=== PATIENT | female | born 1965 | race Caucasian/White ===

== ENCOUNTER → 2020-06-13 09:31 | Outpatient (CLI) | payer OTHER, SELFPAY ==
[2020-06-13 10:46] LABS: EXAGEN MAILED SPECIMEN
[2020-06-13 12:38] LABS: Prothrombin Time (Protime)PT. 13.2 SECONDS (11.7-14.9)
[2020-06-13 12:39] LABS: Partial Thromboplast Time 38.6 Seconds (24.1-36.2)
[2020-06-13 12:43] LABS: ALB/GLOB Ratio 0.9 RATIO (0.9-2.4); AST(SGOT) 18 U/L (15-37); Alanine Aminotransfer ALT/SGPT 22 U/L (13-56); Albumin, Serum 3.5 g/dL (3.2-5.0); Alkaline Phosphatase 89 U/L (45-117); Anion Gap 6 (5-15); BUN 14 mg/dL (7-18); BUN/Creat Ratio 13.3 RATIO (10-20); Calcium,Total 8.8 mg/dL (8.5-10.1); Chloride 98 mmol/L (98-107); Creatinine, Serum 1.05 mg/dL (0.55-1.02); EST Glomerular Filtration Rate 57 mL/min (>60); Est Glom Filt Rate - Afr Amer 70 mL/min (>60); Globulin 3.7 g/dL (2.2-4.2); Glucose 99 mg/dL (74-106); Potassium 3.7 mmol/L (3.5-5.1); Protein, Total 7.2 g/dL (6.4-8.2); Sodium Level 135 mmol/L (136-145)
[2020-06-13 12:59] LABS: Erythrocyte Sedimentation Rate 14 mm/hr (0-30)
[2020-06-13 13:10] LABS: Absolute Lymphocyte Count 2.04 X10^3/uL (0.83-4.51); Absolute Neutrophil Count 8.1 X10^3/uL (2.0-7.7); Basophil# 0.01 X10^3/uL; Basophil% 0.1 % (0-1); Eosinophil# 0.09 X10^3/uL; Eosinophils% 0.8 % (0-5); Hematocrit 38.6 % (37-47); Hemoglobin 12.5 g/dL (12.0-15.0); Lymphocyte # 2.04 X10^3/ul (4.0); Lymphocyte % 18.1 % (19-41); Mean Corp Hgb Conc 32.4 g/dL (32-36); Mean Corpuscular Volume 92.8 fL (81-99); Mean Platelet Vol. 11.5 fl (6.2-12.0); Monocyte# 0.97 X10^3/uL; Monocyte% 8.6 % (0-10); NRBC Flagged by Analyzer 0 % (0-5); Neutrophil # 8.09 X10^3/uL (2.7-7.7); Platelet Count 290 K/mm3 (150-450); Protein, Urine (Random) 14.8 mg/dL (<11.9); Protein:Creat Ratio 159 mg/g CRE (0-200); RBC Distribution Width CV 13.6 % (11.6-14.6); RBC Distribution Width SD 46.2 fl (35.1-43.9); Red Blood Count 4.16 M/mm3 (4.2-5.4); White Blood Count 11.3 K/mm3 (4.4-11.0)
[2020-06-13 13:12] LABS: Hepatitis B Surface Antibody Non-Reactive; Hepatitis B Surface Antigen Non-Reactive (Nonreactive); Hepatitis C Antibody Non-Reactive (Nonreactive)
[2020-06-13 13:13] LABS: Color, Urine Yellow (Yellow); Glucose, Dipstick Normal (Normal); Ketone-Dipstick Negative (Negative); Leukocyte Esterase-Dipstick Negative /ul (Negative); Nitrite-Dipstick Negative (Negative); Occult Blood-Urine Negative /ul (Negative); Protein-Dipstick Negative (Negative); Urine Bilirubin Dipstick Negative (Negative); Urine Clarity Clear (Clear); Urine Urobilinogen Normal (Normal)
[2020-06-14 14:32] LABS: Thrombin Time 14.6 sec (0.0-23.0)
[2020-06-16 09:07] LABS: Dilute Prothrombin Time (dPT) 41.6 sec (0.0-55.0); Dilute Russell Viper Venom 46.4 sec (0.0-47.0); Hexagonal Phase Phospholipid 0 sec (0-11); Hexagonal Phase Phospholipid 2 0 sec (0-11); PTT-LA 54.5 sec (0.0-51.9); PTT-LA Incub Mix 60.1 sec (0.0-48.9); PTT-LA Mix 48.7 sec (0.0-48.9); Thrombin Time 15.3 sec (0.0-23.0); dPT Confirm Ratio 1.17 Ratio (0.00-1.40)
[2020-06-20 14:00] LABS: Interpretation Comment: (.)
== END ==
PROVIDERS: PCP Family Medicine; Referring Provider Internal Medicine Rheumatology; Visit Provider Internal Medicine Rheumatology
DX: M06.4 Inflammatory polyarthropathy (principal); R76.8 Other specified abnormal immunological findings in serum; M19.041 Primary osteoarthritis, right hand; M18.0 Bilateral primary osteoarthritis of first carpometacarpal joints; M17.0 Bilateral primary osteoarthritis of knee; M47.892 Other spondylosis, cervical region; M47.897 Other spondylosis, lumbosacral region; I10 Essential (primary) hypertension; E03.9 Hypothyroidism, unspecified; E78.5 Hyperlipidemia, unspecified; K58.9 Irritable bowel syndrome, unspecified
CPT/HCPCS: 36415; 80053; 81002; 82570; 84156; 85025; 85598; 85610; 85652; 85670; 85730; 86140; 86706; 86803; 87340

== ENCOUNTER → 2020-07-09 14:52 | Outpatient (CLI) | payer OTHER, SELFPAY ==
--- NOTE | 2020-07-09 14:55 | BI_ITS ---
MAMMOGRAPHY - BILATERAL SCREENING REASON FOR EXAM: Female, 55 years old. Routine annual screening examination. PERTINENT HISTORY: Aunt with breast cancer. TECHNIQUE: Digital bilateral breast odell (3D mammographic acquisition) in the CC and MLO projections. 2-D mediolateral oblique (MLO) and craniocaudad (CC) views of both breasts were obtained. CAD: Full Field Digital Mammography with Computer Added Detection was performed. COMPARISON: Comparison is made with prior outside examination dated 12/13/2018. FINDINGS: Breast Composition: The breasts are heterogeneously dense, which may obscure small masses. There are no dominant masses or suspicious calcifications. Stable small benign-appearing bilateral axillary lymph nodes. No other significant abnormalities are identified. There has been no significant change since the prior study. BI/SCRN MAMM (CAD)W/ODELL BILAT IMPRESSION: Stable bilateral screening mammogram. Yearly follow-up mammogram recommended. (A) ASSESSMENT CATEGORY: BIRADS Category 2: Benign. A letter regarding these results will be sent to the patient by the facility within 30 days. Approximately 10% of breast cancers are not detected by mammography. A normal mammogram should not delay biopsy of a clinically suspicious abnormality. [id number] Electronically Signed: Nehemiah Romero MD at 15:37 EST , Service support ,
== END ==
PROVIDERS: PCP Family Medicine; Referring Provider Family Medicine; Visit Provider Family Medicine
DX: Z12.31 Encounter for screening mammogram for malignant neoplasm of breast (principal); Z80.3 Family history of malignant neoplasm of breast
CPT/HCPCS: 77063; 77067

== ENCOUNTER → 2020-09-06 11:01 | Outpatient (CLI) | payer MEDICARE, SELFPAY ==
[2020-09-06 11:37] LABS: Absolute Lymphocyte Count 2.39 X10^3/uL (0.83-4.51); Absolute Neutrophil Count 3.7 X10^3/uL (2.0-7.7); Basophil# 0.03 X10^3/uL; Basophil% 0.4 % (0-1); Eosinophil# 0.27 X10^3/uL; Eosinophils% 3.8 % (0-5); Hematocrit 38.1 % (37-47); Hemoglobin 12.2 g/dL (12.0-15.0); Lymphocyte # 2.39 X10^3/ul (4.0); Lymphocyte % 33.5 % (19-41); Mean Corpuscular Hgb 30.1 pg (27.0-32.0); Mean Corpuscular Volume 94.1 fL (81-99); Mean Platelet Vol. 10.7 fl (6.2-12.0); Monocyte# 0.76 X10^3/uL; Monocyte% 10.7 % (0-10); NRBC Flagged by Analyzer 0 % (0-5); Neutrophil # 3.65 X10^3/uL (2.7-7.7); Neutrophil % 51.2 % (47-70); Platelet Count 307 K/mm3 (150-450); RBC Distribution Width CV 14.7 % (11.6-14.6); RBC Distribution Width SD 50.4 fl (35.1-43.9); Red Blood Count 4.05 M/mm3 (4.2-5.4); White Blood Count 7.1 K/mm3 (4.4-11.0)
[2020-09-06 12:16] LABS: AST(SGOT) 19 U/L (15-37); Alanine Aminotransfer ALT/SGPT 27 U/L (13-56); Albumin, Serum 3.3 g/dL (3.2-5.0); Alkaline Phosphatase 89 U/L (45-117); Anion Gap 5 (5-15); BUN 17 mg/dL (7-18); BUN/Creat Ratio 17.9 RATIO (10-20); Chloride 102 mmol/L (98-107); Creatinine, Serum 0.95 mg/dL (0.55-1.02); EST Glomerular Filtration Rate 64 mL/min (>60); Est Glom Filt Rate - Afr Amer 78 mL/min (>60); Globulin 3.4 g/dL (2.2-4.2); Glucose 96 mg/dL (74-106); Potassium 4.6 mmol/L (3.5-5.1); Protein, Total 6.7 g/dL (6.4-8.2); Sodium Level 137 mmol/L (136-145)
== END ==
PROVIDERS: PCP Family Medicine; Referring Provider Internal Medicine Rheumatology; Visit Provider Internal Medicine Rheumatology
DX: M06.4 Inflammatory polyarthropathy (principal); Z79.899 Other long term (current) drug therapy; R76.8 Other specified abnormal immunological findings in serum; M19.041 Primary osteoarthritis, right hand; M18.0 Bilateral primary osteoarthritis of first carpometacarpal joints; M17.0 Bilateral primary osteoarthritis of knee; M47.892 Other spondylosis, cervical region; M47.897 Other spondylosis, lumbosacral region; I10 Essential (primary) hypertension; E03.9 Hypothyroidism, unspecified; E78.5 Hyperlipidemia, unspecified; K58.9 Irritable bowel syndrome, unspecified
CPT/HCPCS: 36415; 80053; 85025

== ENCOUNTER → 2020-10-05 07:03 | Outpatient (CLI) | payer MEDICARE, SELFPAY ==
--- NOTE | 2020-10-05 07:18 | MRI_ITS ---
STUDY: MRI CERVICAL SPINE WITHOUT CONTRAST REASON FOR EXAM: Female, 55 years old. SPINAL STENOSIS TECHNIQUE: Standardized fat and water weighted pulse sequences were obtained in the sagittal and axial planes. COMPARISON: None FINDINGS: Normal foramen magnum and brainstem-cervical cord junction. Normal craniovertebral junction. Normal anterior atlantoaxial articulation. Normal odontoid process. Normal cervical lordosis. Normal vertebral bodies and posterior osseous elements. C2-3: Normal endplates. Normal disc height, signal and morphology. Normal central canal and intervertebral neural foramina. C3-4: Normal endplates. Normal disc height, signal and morphology. Normal central canal and intervertebral neural foramina. C4-5: Normal endplates. Normal disc height, signal and morphology. Normal central canal and intervertebral neural foramina. C5-6: Moderate broad disc osteophyte complex produces moderate spinal stenosis with abutment the central spinal cord and mild bilateral neural foraminal stenosis. C6-7: Moderate broad disc osteophyte complex produces moderate spinal stenosis with abutment the central spinal cord and mild bilateral neural foraminal stenosis. C7-T1: Normal endplates. Normal disc height, signal and morphology. Normal central canal and intervertebral neural foramina. Normal cervical cord. The dilatation of nerve root sleeves bilaterally at multiple levels in the lower cervical spine. Normal visualized soft tissue structures. MRI/Spine Cervical (Routine) IMPRESSION: Multilevel degenerative changes, as described above. Electronically Signed: Gabo Oates MD at 10:16 EDT Tel , Service support ,
--- NOTE | 2020-10-05 07:19 | MRI_ITS ---
STUDY: MRI LUMBAR SPINE WITHOUT CONTRAST REASON FOR EXAM: Female, 55 years old. DEGENERATION OF LUMBAR DISC TECHNIQUE: Standardized fat and water weighted pulse sequences were obtained in the sagittal and axial planes. COMPARISON: None FINDINGS: T12-L1: Normal endplates. Normal disc height, hydration and morphology. Normal bilateral facet joints. Normal central canal and bilateral lateral recesses. Normal bilateral intervertebral neural foramina. Normal lumbar lordosis. There is no substantial scoliosis. Normal conus medullaris that terminates at the T12/L1. L1-2: Mild broad disc protrusion produces mild spinal stenosis and mild bilateral neural foraminal stenosis. L2-3: Moderate broad disc protrusion produces moderate spinal stenosis with mild bilateral lateral recess stenosis and moderate bilateral neural foraminal stenosis with abutment of the exiting L2 nerve roots bilaterally. L3-4: Mild bilateral facet hypertrophy with fluid in the facet joints consistent with instability and moderate ligament flavum hypertrophy. Moderate broad disc protrusion asymmetric to left with a left foraminal protrusion produces moderate spinal stenosis with mild bilateral lateral recess stenosis, mild right neural foraminal stenosis and moderate left neural foraminal stenosis with abutment of the left L3 nerve root laterally. L4-5: Mild bilateral facet hypertrophy with fluid in the facet joints consistent with instability and moderate ligament flavum hypertrophy. Moderate broad disc protrusion and right foraminal protrusion produces moderate spinal stenosis, severe right neural foraminal stenosis and the moderate left neural foraminal stenosis. L5-S1: Mild bilateral facet hypertrophy and ligament flavum hypertrophy. Mild broad disc protrusion produces mild central stenosis and moderate bilateral neural foraminal stenosis. Normal visualized sacral ala. Severe friction related edema of the posterior subcutaneous fat. MRI/Spine Lumbar (Routine) IMPRESSION: Multilevel degenerative changes, as described above. Electronically Signed: Gabo Oates MD at 11:46 EDT Tel , Service support ,
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
== END ==
PROVIDERS: PCP Family Medicine; Referring Provider Family Medicine; Visit Provider Family Medicine
DX: M89.8X8 Other specified disorders of bone, other site (principal); M50.322 Other cervical disc degeneration at C5-C6 level; M48.02 Spinal stenosis, cervical region; M51.36 Other intervertebral disc degeneration, lumbar region
CPT/HCPCS: 72141; 72148; 73723; A9575

== ENCOUNTER 2020-10-29 16:07 | Emergency (ER) | payer MEDICARE, SELFPAY ==
[2020-10-29 16:07] VITALS: PULSE 109; RESP 24; TEMP 36.7; O2SAT 99; BMI 38.6
[2020-10-29 16:14] VITALS: BP 152/96; PULSE 109; RESP 24; TEMP 36.7; O2SAT 99
--- NOTE | 2020-10-29 16:18 | CT_ITS ---
STUDY: CTA CHEST REASON FOR EXAM: Female, 55 years old. cp RADIATION DOSAGE (If Supplied By Facility): CTDIvol = ( 12.47 ) mGy, DLP = ( 435.01 ) mGycm TECHNIQUE: The examination was performed with the intravenous administration of IV 100mL Isovue-370. Post-processing of the angiographic images was performed, with multiplanar reformation and 3D reconstruction. Individualized dose optimization techniques were used for this CT. COMPARISON: Chest x-ray earlier today FINDINGS: Normal enhancement of the main pulmonary artery and right and left pulmonary arteries. Normal enhancement of the bilateral peripheral pulmonary arteries. There is no demonstrated pulmonary embolism. Normal thoracic aorta and visualized great vessels. There is no demonstrated aortic dissection. Normal heart and pericardium. Normal mediastinum. Normal hilar regions. Normal visualized trachea and bronchi. The lungs are well expanded. Subtle small patchy bilateral groundglass opacities consistent with subsegmental atelectasis or pneumonitis. Normal pleura. Normal chest wall structures. Normal osseous structures. Normal visualized upper abdomen. CT/CTA Chest W/WO Contrast IMPRESSION: 1. No CT evidence of pulmonary embolism. 2. Suspect early or mild subsegmental atelectasis or pneumonitis. Imaging features can be seen with Covid 19 pneumonia, though are nonspecific and can occur with a variety of infectious and noninfectious processes. Electronically Signed: Gabo Oates MD at 18:08 EDT Tel , Service support ,
--- NOTE | 2020-10-29 16:21 | EKG12_ITS ---
Test Reason : SOB/CP Blood Pressure : / mmHG Vent. Rate : 107 BPM Atrial Rate : 107 BPM P-R Int : 138 ms QRS Dur : 072 ms QT Int : 300 ms P-R-T Axes : 045 009 050 degrees QTc Int : 400 ms Sinus tachycardia Possible Left atrial enlargement Septal infarct , age undetermined Abnormal ECG Confirmed by SHAWNA LANE, SANTHOSH ([id number]), associate editor YI GRIMALDO ([id number]) on 10/31/2020 9:42:59 AM Referred By: Confirmed By:SANTHOSH MATOS MD
[2020-10-29] MEDS: Aspirin 81 MG TAB.CHEW 324 MG PO (16:28)
[2020-10-29] MEDS: Ondansetron 4 MG/2 ML Vial IV (16:28)
[2020-10-29] MEDS: Morphine 4 MG/ML Syringe IV (16:29)
[2020-10-29 16:32] VITALS: O2SAT 97
[2020-10-29 16:32] LABS: Absolute Lymphocyte Count 3.84 X10^3/uL (0.83-4.51); Absolute Neutrophil Count 6.1 X10^3/uL (2.0-7.7); Basophil# 0.04 X10^3/uL; Basophil% 0.4 % (0-1); Eosinophil# 0.17 X10^3/uL; Eosinophils% 1.5 % (0-5); Hematocrit 36.8 % (37-47); Hemoglobin 12.2 g/dL (12.0-15.0); Lymphocyte # 3.84 X10^3/ul (0.83-4.51); Lymphocyte % 33.8 % (19-41); Mean Corp Hgb Conc 33.2 g/dL (32-36); Mean Corpuscular Hgb 31.2 pg (27.0-32.0); Mean Corpuscular Volume 94.1 fL (81-99); Mean Platelet Vol. 10.8 fl (6.2-12.0); Monocyte# 1.17 X10^3/uL; Monocyte% 10.3 % (0-10); NRBC Flagged by Analyzer 0 % (0-5); Neutrophil # 6.06 X10^3/uL (2.7-7.7); Neutrophil % 53.4 % (47-70); Platelet Count 359 K/mm3 (150-450); RBC Distribution Width CV 14.6 % (11.6-14.6); RBC Distribution Width SD 49.7 fl (35.1-43.9); Red Blood Count 3.91 M/mm3 (4.2-5.4); White Blood Count 11.4 K/mm3 (4.4-11.0)
--- NOTE | 2020-10-29 16:42 | EDS_ITS ---
HPI History of Present Illness Chief Complaint: Chest Pain Narrative Narrative: Patient presents with chest pain that started yesterday but got much worse today. No obvious injury, the pain is pleuritic. There is left-sided pain underneath her breast. It does not radiate to her back. There is no tearing sensation. She does not have any lower extremity edema or calf pain but she has a recent leg stress fracture. No recent fever or chills. PFSH PFSH Home Medications acetaminophen [Tylenol] 650 mg PO Q4H PRN 10/29/20 [History Last Taken Unknown] cyclobenzaprine [Flexeril] 10 mg PO TID 10/29/20 [History Last Taken Unknown] estradiol 2 mg PO DAILY 10/29/20 [History Last Taken Unknown] folic acid 2 mg PO DAILY 10/29/20 [History Last Taken Unknown] gabapentin [Neurontin] 800 mg PO TID 10/29/20 [History Last Taken Unknown] hydroxychloroquine [Plaquenil] 200 mg PO DAILY 10/29/20 [History Last Taken Unknown] ketorolac 10 mg PO TID PRN 5 Days #20 tab 10/29/20 [Rx Last Taken Unknown] levothyroxine [Synthroid] 150 mcg PO DAILY 10/29/20 [History Last Taken Unknown] melatonin 10 mg PO DAILY 10/29/20 [History Last Taken Unknown] meloxicam 15 mg PO DAILY 10/29/20 [History Last Taken Unknown] methotrexate [Xatmep] 2.5 mg PO QWEEK 10/29/20 [History Last Taken Unknown] omeprazole 20 mg PO DAILY 10/29/20 [History Last Taken Unknown] oxycodone-acetaminophen [Percocet] 1 tab PO Q8H PRN 3 Days #10 tab 10/29/20 [Rx Last Taken Unknown] prednisone 10 mg PO DAILY 10/29/20 [History Last Taken Unknown] valsartan-hydrochlorothiazide [Diovan HCT] 1 tab PO DAILY 10/29/20 [History Last Taken Unknown] Allergy/AdvReac Type Severity Reaction Status Date / Time gentamicin Allergy SKIN PEALED Verified 10/29/20 16:14 Social History Smoking Status: Former smoker ROS ROS ED ROS Narrative Past medical history: Rheumatoid arthritis, status post hysterectomy on estrogen Medications: Reviewed Social history: Noncontributory Review of systems: All systems negative except as indicated General: No fever Eyes: No visual changes ENT: No upper airway congestion, normal voice Neck: No neck pain Cardiovascular: Chest pain as in HPI she is complaining of difficulty breathing. Respiratory: No shortness of breath or cough Gastrointestinal: No abdominal pain, nausea vomiting or diarrhea Genitourinary: No dysuria Musculoskeletal: Denies myalgias no difficulty with ambulation Skin: No rash Neurological: No memory loss, confusion or any focal weakness Psych: No recent behavioral changes Hematologic: No easy bleeding or easy bruising EXAM Physical Exam Narrative Exam Narrative: Physical exam General: Patient appears in distress Head: Normocephalic, Atraumatic Eyes: Conjunctiva not pale ENT: Moist mucous membranes Neck: Supple, Nontender, No lymphadenopathy Cardiovascular: Regular rate, Regular rhythm, I cannot reproduce the left-sided chest pain. Respiratory: No distress, CTA bilaterally Abdomen: Soft, Nontender, Nondistended Back: Nontender, Normal Inspection. Negative for: CVA tenderness Extremities: Nontender, No edema Skin: Normal color, No rash Neurological: Alert, Normal Strength, Normal Sensation Psychological: Normal affect Const Vital Signs: 10/29/20 16:07 10/29/20 16:14 10/29/20 16:32 Temperature 98.1 F 98.1 F Temperature Source Temporal Temporal Pulse Rate 109 H 109 H Respiratory Rate 24 H 24 H Blood Pressure 152/96 H Blood Pressure Mean 114 Pulse Ox 99 99 97 Oxygen Delivery Method Room Air Room Air Nasal Cannula Oxygen Flow Rate (L/min) 2 10/29/20 17:07 10/29/20 18:00 Temperature Temperature Source Pulse Rate 79 83 Respiratory Rate 18 16 Blood Pressure 146/83 H 128/56 H Blood Pressure Mean 104 80 Pulse Ox 100 96 Oxygen Delivery Method Nasal Cannula Room Air Oxygen Flow Rate (L/min) 2 MDM MDM MDM Narrative Medical decision making narrative: Patient had a PE work-up which was negative otherwise the rest of her lab work is also unremarkable. She appears well. I had a long discussion with her she said initially that now that she is thinking about it her pain started after she was gardening and she twisted the wrong way and developed slow onset of pain which got worse today. I believe this is likely all chest wall related. I believe she is stable for discharge. Lab Data Labs: Laboratory Results - last 24 hr 10/29/20 10/29/20 10/29/20 16:17 16:17 16:17 WBC 11.4 H RBC 3.91 L Hgb 12.2 Hct 36.8 L MCV 94.1 MCH 31.2 MCHC 33.2 RDW Std Deviation 49.7 H RDW Coeff of [place] 14.6 Plt Count 359 MPV 10.8 Immature Gran % (Auto) 0.600 Neut % (Auto) 53.4 Lymph % (Auto) 33.8 [place] % (Auto) 10.3 H Eos % (Auto) 1.5 Baso % (Auto) 0.4 Absolute Neuts (auto) 6.1 Absolute Lymphs (auto) 3.84 Nucleated RBC % 0 PT 12.8 INR 1.0 Sodium 137 Potassium 3.3 L Chloride 102 Carbon Dioxide 30.0 Anion Gap 5 BUN 19 H Creatinine 1.06 H Estim Creat Clear Calc 48.44 Est GFR (MDRD) Af Amer 69 Est GFR (MDRD) Non-Af 57 L BUN/Creatinine Ratio 17.9 Glucose 86 Calcium 9.1 Troponin I < 0.015 B-Natriuretic Peptide 10/29/20 16:17 WBC RBC Hgb Hct MCV MCH MCHC RDW Std Deviation RDW Coeff of [place] Plt Count MPV Immature Gran % (Auto) Neut % (Auto) Lymph % (Auto) [place] % (Auto) Eos % (Auto) Baso % (Auto) Absolute Neuts (auto) Absolute Lymphs (auto) Nucleated RBC % PT INR Sodium Potassium Chloride Carbon Dioxide Anion Gap BUN Creatinine Estim Creat Clear Calc Est GFR (MDRD) Af Amer Est GFR (MDRD) Non-Af BUN/Creatinine Ratio Glucose Calcium Troponin I B-Natriuretic Peptide 19.2 Radiography Diagnostic Testing: Radiology Impression Chest CTA 10/29/20 16:18 IMPRESSION: 1. No CT evidence of pulmonary embolism. 2. Suspect early or mild subsegmental atelectasis or pneumonitis. Imaging features can be seen with Covid 19 pneumonia, though are nonspecific and can occur with a variety of infectious and noninfectious processes. Electronically Signed: Gabo Oates MD at 18:08 EDT Tel , Service support , Chest X-Ray 10/29/20 17:15 IMPRESSION: Normal x-ray examination of the chest. Electronically Signed: Gabo Oates MD at 17:27 EDT Tel , Service support , Discharge Plan Triage Chief Complaint: Chest Pain ED Provider: Jay Soria Dx/Rx/DC Orders Clinical Impression: Chest wall muscle strain Instructions: ED Strain Chest Wall Prescriptions: New oxycodone-acetaminophen [Percocet] 5-325 mg tablet 1 tab PO Q8H PRN (Reason: pain) 3 Days Qty: 10 RF: 0 ketorolac 10 mg tablet 10 mg PO TID PRN (Reason: pain) 5 Days Qty: 20 RF: 0 No Action cyclobenzaprine [Flexeril] 10 mg Tablet 10 mg PO TID RF: 0 prednisone 10 mg Tablet 10 mg PO DAILY RF: 0 meloxicam 15 mg Tablet 15 mg PO DAILY RF: 0 valsartan-hydrochlorothiazide [Diovan HCT] 160-12.5 mg Tablet 1 tab PO DAILY RF: 0 gabapentin [Neurontin] 800 mg Tablet 800 mg PO TID RF: 0 levothyroxine [Synthroid] 150 mcg Tablet 150 mcg PO DAILY RF: 0 omeprazole 20 mg Capsule,Delayed Release(Dr/Ec) 20 mg PO DAILY RF: 0 estradiol 2 mg Tablet 2 mg PO DAILY RF: 0 folic acid 1 mg Tablet 2 mg PO DAILY RF: 0 hydroxychloroquine [Plaquenil] 200 mg Tablet 200 mg PO DAILY RF: 0 acetaminophen [Tylenol] 325 mg Capsule 650 mg PO Q4H PRN (Reason: Pain) RF: 0 melatonin 10 mg Tablet 10 mg PO DAILY RF: 0 Xatmep 2.5 mg/mL Solution 2.5 mg PO QWEEK RF: 0 Primary Care Provider: Faby Guaman Referrals: Faby Guaman, [Primary Care Provider] - 2 Days Disposition Disposition: Home, self care
[2020-10-29 16:50] LABS: Anion Gap 5 (5-15); BUN 19 mg/dL (7-18); BUN/Creat Ratio 17.9 RATIO (10-20); Calcium,Total 9.1 mg/dL (8.5-10.1); Chloride 102 mmol/L (98-107); Creatinine, Serum 1.06 mg/dL (0.55-1.02); EST Glomerular Filtration Rate 57 mL/min (>60); Est Glom Filt Rate - Afr Amer 69 mL/min (>60); Estimated Creatinine Clearance 48.44 ml/min; Glucose 86 mg/dL (74-106); Potassium 3.3 mmol/L (3.5-5.1); Sodium Level 137 mmol/L (136-145)
[2020-10-29] MEDS: Ketorolac 15 MG/ML Vial IV (16:58)
[2020-10-29] MEDS: HYDROmorphone 1 MG/ML Syringe IV (16:58)
[2020-10-29 17:00] LABS: Prothrombin Time (Protime)PT. 12.8 SECONDS (11.7-14.9)
[2020-10-29 17:07] VITALS: BP 146/83; PULSE 79; RESP 18; O2SAT 100
--- NOTE | 2020-10-29 17:15 | RAD_ITS ---
STUDY: X-RAY CHEST REASON FOR EXAM: Female, 55 years old. chest pain TECHNIQUE: Single AP portable view of the chest. COMPARISON: None. FINDINGS: The lungs are clear and expanded. There is no demonstrated pleural abnormality. Normal size heart. Normal mediastinum and ronald. Normal visualized pulmonary arteries. Normal visualized aortic arch and descending thoracic aorta. Normal visualized thoracic spine. Normal visualized ribs, clavicles, and shoulders. There is no demonstrated abnormality of the visualized soft tissue structures of the upper abdomen. RAD/Chest 1 View (Portable) IMPRESSION: Normal x-ray examination of the chest. Electronically Signed: Gabo Oates MD at 17:27 EDT Tel , Service support ,
[2020-10-29 17:24] LABS: BNP,B-Type NATRIURETIC PEPTIDE 19.2 pg/mL (0-100)
[2020-10-29 18:00] VITALS: BP 128/56; PULSE 83; RESP 16; O2SAT 96
[2020-10-29 19:27] VITALS: BP 141/82; PULSE 98; RESP 18; O2SAT 98
== END 2020-10-29 19:32 | disposition home or self-care (01) ==
PROVIDERS: Emergency Provider Emergency Medicine; PCP Family Medicine
DX: S29.011A Strain of muscle and tendon of front wall of thorax, initial encounter (principal); X58.XXXA Exposure to other specified factors, initial encounter; Y93.9 Activity, unspecified; Y92.89 Other specified places as the place of occurrence of the external cause; Y99.9 Unspecified external cause status; M06.9 Rheumatoid arthritis, unspecified; Z79.1 Long term (current) use of non-steroidal anti-inflammatories (NSAID); Z79.52 Long term (current) use of systemic steroids; Z79.899 Other long term (current) drug therapy; Z87.891 Personal history of nicotine dependence; Z90.710 Acquired absence of both cervix and uterus; R06.02 Shortness of breath
CPT/HCPCS: 71045; 71275; 80048; 83880; 84484; 85025; 85610; 93005; 96374; 96375; 99284; Q9967; J2405

== ENCOUNTER → 2020-12-08 08:31 | Outpatient (CLI) | payer MEDICARE, SELFPAY ==
[2020-12-08 09:19] LABS: Absolute Lymphocyte Count 2.55 X10^3/uL (0.83-4.51); Absolute Neutrophil Count 2.1 X10^3/uL (2.0-7.7); Basophil# 0.02 X10^3/uL; Basophil% 0.4 % (0-1); Eosinophil# 0.16 X10^3/uL; Eosinophils% 2.9 % (0-5); Hematocrit 35.3 % (37-47); Hemoglobin 11.5 g/dL (12.0-15.0); Lymphocyte # 2.55 X10^3/ul (0.83-4.51); Mean Corp Hgb Conc 32.6 g/dL (32-36); Mean Corpuscular Volume 95.1 fL (81-99); Mean Platelet Vol. 11.1 fl (6.2-12.0); Monocyte# 0.56 X10^3/uL; Monocyte% 10.3 % (0-10); NRBC Flagged by Analyzer 0 % (0-5); Neutrophil # 2.13 X10^3/uL (2.7-7.7); Neutrophil % 39.2 % (47-70); Platelet Count 309 K/mm3 (150-450); RBC Distribution Width CV 14.4 % (11.6-14.6); RBC Distribution Width SD 49.7 fl (35.1-43.9); Red Blood Count 3.71 M/mm3 (4.2-5.4); White Blood Count 5.4 K/mm3 (4.4-11.0)
[2020-12-08 09:58] LABS: AST(SGOT) 29 U/L (15-37); Alanine Aminotransfer ALT/SGPT 35 U/L (13-56); Albumin, Serum 3.3 g/dL (3.2-5.0); Alkaline Phosphatase 103 U/L (45-117); Anion Gap 6 (5-15); BUN 21 mg/dL (7-18); BUN/Creat Ratio 21.6 RATIO (10-20); Calcium,Total 8.8 mg/dL (8.5-10.1); Chloride 104 mmol/L (98-107); Creatinine, Serum 0.97 mg/dL (0.55-1.02); EST Glomerular Filtration Rate 63 mL/min (>60); Est Glom Filt Rate - Afr Amer 76 mL/min (>60); Globulin 3.3 g/dL (2.2-4.2); Glucose 95 mg/dL (74-106); Potassium 3.9 mmol/L (3.5-5.1); Protein, Total 6.6 g/dL (6.4-8.2); Sodium Level 139 mmol/L (136-145); Thyroid Stim Hormone (TSH) 0.02 uIU/mL (0.358-3.74)
== END ==
PROVIDERS: PCP Family Medicine; Referring Provider Internal Medicine Rheumatology; Visit Provider Internal Medicine Rheumatology
DX: E03.9 Hypothyroidism, unspecified (principal)
CPT/HCPCS: 36415; 80053; 84443; 85025

== ENCOUNTER → 2021-02-25 10:53 | Outpatient (CLI) | payer MEDICARE, SELFPAY ==
[2021-02-25 12:08] LABS: Absolute Neutrophil Count 3.2 X10^3/uL (2.0-7.7); Basophil# 0.02 X10^3/uL; Basophil% 0.3 % (0-1); Eosinophil# 0.21 X10^3/uL; Eosinophils% 3.1 % (0-5); Hematocrit 35.9 % (37-47); Hemoglobin 11.6 g/dL (12.0-15.0); Lymphocyte % 40.2 % (19-41); Mean Corp Hgb Conc 32.3 g/dL (32-36); Mean Corpuscular Hgb 31.2 pg (27.0-32.0); Mean Corpuscular Volume 96.5 fL (81-99); Mean Platelet Vol. 11.1 fl (6.2-12.0); Monocyte% 8.9 % (0-10); NRBC Flagged by Analyzer 0 % (0-5); Neutrophil # 3.17 X10^3/uL (2.7-7.7); Neutrophil % 47.2 % (47-70); Platelet Count 316 K/mm3 (150-450); RBC Distribution Width CV 13.9 % (11.6-14.6); Red Blood Count 3.72 M/mm3 (4.2-5.4); White Blood Count 6.7 K/mm3 (4.4-11.0)
[2021-02-25 12:32] LABS: AST(SGOT) 14 U/L (15-37); Alanine Aminotransfer ALT/SGPT 26 U/L (13-56); Albumin, Serum 3.4 g/dL (3.2-5.0); Alkaline Phosphatase 85 U/L (45-117); Anion Gap 3 (5-15); BUN 15 mg/dL (7-18); BUN/Creat Ratio 17.3 RATIO (10-20); Calcium,Total 9.3 mg/dL (8.5-10.1); Chloride 103 mmol/L (98-107); Creatinine, Serum 0.87 mg/dL (0.55-1.02); EST Glomerular Filtration Rate 72 mL/min (>60); Est Glom Filt Rate - Afr Amer 87 mL/min (>60); Globulin 3.5 g/dL (2.2-4.2); Glucose 91 mg/dL (74-106); Protein, Total 6.9 g/dL (6.4-8.2); Sodium Level 138 mmol/L (136-145)
== END ==
PROVIDERS: PCP Family Medicine; Referring Provider Internal Medicine Rheumatology; Visit Provider Internal Medicine Rheumatology
DX: M06.4 Inflammatory polyarthropathy (principal); Z79.899 Other long term (current) drug therapy; R76.8 Other specified abnormal immunological findings in serum; M19.041 Primary osteoarthritis, right hand; M18.0 Bilateral primary osteoarthritis of first carpometacarpal joints
CPT/HCPCS: 36415; 80053; 85025

== ENCOUNTER → 2021-05-15 11:50 | Outpatient (CLI) | payer MEDICARE, SELFPAY ==
[2021-05-15 12:41] LABS: Absolute Lymphocyte Count 3.25 X10^3/uL (0.83-4.51); Absolute Neutrophil Count 6.5 X10^3/uL (2.0-7.7); Basophil# 0.02 X10^3/uL; Basophil% 0.2 % (0-1); Eosinophil# 0.16 X10^3/uL; Eosinophils% 1.5 % (0-5); Hematocrit 35.6 % (37-47); Hemoglobin 11.4 g/dL (12.0-15.0); Lymphocyte # 3.25 X10^3/ul (0.83-4.51); Lymphocyte % 29.7 % (19-41); Mean Corpuscular Hgb 30.8 pg (27.0-32.0); Mean Corpuscular Volume 96.2 fL (81-99); Mean Platelet Vol. 10.6 fl (6.2-12.0); Monocyte# 0.91 X10^3/uL; Monocyte% 8.3 % (0-10); NRBC Flagged by Analyzer 0 % (0-5); Neutrophil # 6.52 X10^3/uL (2.7-7.7); Neutrophil % 59.7 % (47-70); Platelet Count 323 K/mm3 (150-450); RBC Distribution Width CV 15.1 % (11.6-14.6); RBC Distribution Width SD 51.4 fl (35.1-43.9); White Blood Count 10.9 K/mm3 (4.4-11.0)
[2021-05-15 13:12] LABS: ALB/GLOB Ratio 0.9 RATIO (0.9-2.4); AST(SGOT) 15 U/L (15-37); Alanine Aminotransfer ALT/SGPT 29 U/L (13-56); Albumin, Serum 3.3 g/dL (3.2-5.0); Alkaline Phosphatase 90 U/L (45-117); Anion Gap 8 (5-15); BUN 17 mg/dL (7-18); BUN/Creat Ratio 18.7 RATIO (10-20); Calcium,Total 9.2 mg/dL (8.5-10.1); Chloride 102 mmol/L (98-107); Creatinine, Serum 0.91 mg/dL (0.55-1.02); EST Glomerular Filtration Rate 68 mL/min (>60); Est Glom Filt Rate - Afr Amer 82 mL/min (>60); Globulin 3.7 g/dL (2.2-4.2); Glucose 89 mg/dL (74-106); Sodium Level 140 mmol/L (136-145)
== END ==
PROVIDERS: PCP Family Medicine; Referring Provider Internal Medicine Rheumatology; Visit Provider Internal Medicine Rheumatology
DX: M06.4 Inflammatory polyarthropathy (principal); Z79.899 Other long term (current) drug therapy; R76.8 Other specified abnormal immunological findings in serum; M19.041 Primary osteoarthritis, right hand; M18.0 Bilateral primary osteoarthritis of first carpometacarpal joints; M17.0 Bilateral primary osteoarthritis of knee; M47.892 Other spondylosis, cervical region; M47.897 Other spondylosis, lumbosacral region
CPT/HCPCS: 36415; 80053; 85025; 87070

== ENCOUNTER 2021-05-23 10:14 | Emergency (ER) | payer MEDICARE, SELFPAY ==
[2021-05-23 10:15] VITALS: BP 180/92; PULSE 93; RESP 16; TEMP 36.2; O2SAT 100; BMI 37.8
[2021-05-23 11:45] VITALS: PULSE 80; RESP 18
--- NOTE | 2021-05-23 14:24 | EX.ED.DYSGE1 ---
HPI History of Present Illness Chief Complaint: Sore Throat Narrative Narrative: 55-year-old female presenting with sore throat and hard palate. She states she was seen last week in urgent care diagnosed with shingles in her mouth. She has 1 lesion on each side of the hard palate. She states she is also diagnosed with thrush and she has been on fluconazole daily as well as Magic mouthwash and valacyclovir. She states that she still having pain. She is unsure why the pain has not resolved yet. She has difficulty swallowing harder food but is able to get soft food down. She denies fever or chills. She states he might have some generalized weakness but she is not lightheaded or dizzy. She is making urine and stool. [facility] Medical History Encounter for screening for COVID-19 Shingles Home Medications acetaminophen [Tylenol] 650 mg PO Q4H PRN 10/29/20 [History Last Taken Unknown] cyclobenzaprine [Flexeril] 10 mg PO TID 10/29/20 [History Last Taken Unknown] estradiol 2 mg PO DAILY 10/29/20 [History Last Taken Unknown] folic acid 2 mg PO DAILY 10/29/20 [History Last Taken Unknown] gabapentin [Neurontin] 800 mg PO TID 10/29/20 [History Last Taken Unknown] hydroxychloroquine [Plaquenil] 200 mg PO DAILY 10/29/20 [History Last Taken Unknown] ketorolac 10 mg PO TID PRN 5 Days #20 tab 10/29/20 [Rx Last Taken Unknown] levothyroxine [Synthroid] 150 mcg PO DAILY 10/29/20 [History Last Taken Unknown] melatonin 10 mg PO DAILY 10/29/20 [History Last Taken Unknown] meloxicam 15 mg PO DAILY 10/29/20 [History Last Taken Unknown] methotrexate [Xatmep] 2.5 mg PO QWEEK 10/29/20 [History Last Taken Unknown] omeprazole 20 mg PO DAILY 10/29/20 [History Last Taken Unknown] oxycodone-acetaminophen [Percocet] 1 tab PO Q8H PRN 3 Days #10 tab 10/29/20 [Rx Last Taken Unknown] prednisone 10 mg PO DAILY 10/29/20 [History Last Taken Unknown] valsartan-hydrochlorothiazide [Diovan HCT] 1 tab PO DAILY 10/29/20 [History Last Taken Unknown] MAGIC MOUTH WASH (BMX) 180 mL suspension 5 ml PO TID PRN #180 ml 05/15/21 [Rx Last Taken Unknown] valacyclovir 1 gram tablet 1,000 mg PO TID #21 tab 05/15/21 [Rx Last Taken Unknown] fluconazole 200 mg tablet 200 mg PO DAILY #14 tab 05/18/21 [Rx Last Taken Unknown] clotrimazole 10 mg MUCOUS MEMBRANE 5X/DAY 7 Days #35 tab 05/23/21 [Rx Last Taken Unknown] Allergy/AdvReac Type Severity Reaction Status Date / Time gentamicin Allergy SKIN PEALED Verified 05/23/21 10:18 Social History Smoking Status: Former smoker alcohol intake: never substance use type: does not use ROS ROS ED Constitutional Constitutional ED: Denies chills or fever(s) Eyes Eyes: Denies blurry vision or diplopia ENT ENT ED: Reports sore throat; Denies rhinorrhea Cardiovascular Cardiovascular: Denies chest pain or palpitations Respiratory/Chest Respiratory/Chest: Denies cough or dyspnea Gastrointestinal Gastrointestinal: Denies abdominal pain, nausea or vomiting Genitourinary Genitourinary ED: Denies dysuria or hematuria Musculoskeletal Musculoskeletal: Denies arthralgias or myalgias Integumentary Denies abscess or rash Neurologic Neurologic: Denies headache(s) or weakness EXAM Physical Exam Const Vital Signs: 05/23/21 10:15 05/23/21 11:45 Temperature 97.2 F L Temperature Source Temporal Pulse Rate 93 80 Respiratory Rate 16 18 Blood Pressure 180/92 H Blood Pressure Mean 121 Pulse Ox 100 Oxygen Delivery Method Room Air Positive well nourished General Appearance ED: NAD HEENT Reports moist mucous membranes Negative for trauma Mouth ED: Yes lips normal, Yes tongue normal, Yes salivary gland normal, Yes moist mucous membranes normal, No drooling, No lip abnormal, No malodorous breath, No muffled voice and No tongue abnormal Mouth: lips normal, tongue normal, salivary gland normal, No drooling, No lip abnormal, No malodorous breath, No muffled voice, No tongue abnormal and No thrush Neck Neck Narrative: There are 2 small lesions approximately 1 to 2 mm on the bilaterally they are not vesicular in nature. Resp normal respiratory effort and clear to auscultation bilaterally Cardio regular rate and regular rhythm Neuro oriented x3 and CN's II-XII intact bilaterally Sensorium / Orientation: alert Motor Exam: strength 5/5 throughout Skin no rashes or lesions noted MDM MDM MDM Narrative Medical decision making narrative: 55-year-old female presenting with sore throat. On examination I do not see any thrush. Oropharynx is patent without stridor. There is no edema. The tongue is normal to be close to normal. There is 2 small lesions on the hard palate which do not look vesicular in nature. These are on each side of the hard palate which makes zoster less likely. Patient request that I do a swab to diagnose her for zoster. This was performed and the patient was counseled that she would not have that result today. I will switch her to clotrimazole troches, and give her follow-up with ENT. I did find a culture that showed Ana from her previous visit with the urgent care. Impression: 1. History of thrush 2. History of zoster Discharge Plan Triage Chief Complaint: Sore Throat ED Provider: Amaury Rodriguez Dx/Rx/DC Orders Instructions: ED Esophagitis, Ana Prescriptions: New clotrimazole 10 mg bertha 10 mg mucous membrane 5X/DAY 7 Days Qty: 35 RF: 0 No Action valacyclovir [Valtrex] 1 gram tablet 1,000 mg PO TID Qty: 21 RF: 0 MAGIC MOUTH WASH (BMX) 180 mL suspension 5 ml PO TID PRN (Reason: mouth pain) Qty: 180 RF: 0 cyclobenzaprine [Flexeril] 10 mg Tablet 10 mg PO TID RF: 0 prednisone 10 mg Tablet 10 mg PO DAILY RF: 0 meloxicam 15 mg Tablet 15 mg PO DAILY RF: 0 valsartan-hydrochlorothiazide [Diovan HCT] 160-12.5 mg Tablet 1 tab PO DAILY RF: 0 gabapentin [Neurontin] 800 mg Tablet 800 mg PO TID RF: 0 levothyroxine [Synthroid] 150 mcg Tablet 150 mcg PO DAILY RF: 0 omeprazole 20 mg Capsule,Delayed Release(Dr/Ec) 20 mg PO DAILY RF: 0 estradiol 2 mg Tablet 2 mg PO DAILY RF: 0 folic acid 1 mg Tablet 2 mg PO DAILY RF: 0 hydroxychloroquine [Plaquenil] 200 mg Tablet 200 mg PO DAILY RF: 0 acetaminophen [Tylenol] 325 mg Capsule 650 mg PO Q4H PRN (Reason: Pain) RF: 0 melatonin 10 mg Tablet 10 mg PO DAILY RF: 0 Xatmep 2.5 mg/mL Solution 2.5 mg PO QWEEK RF: 0 oxycodone-acetaminophen [Percocet] 5-325 mg tablet 1 tab PO Q8H PRN (Reason: pain) 3 Days Qty: 10 RF: 0 ketorolac 10 mg tablet 10 mg PO TID PRN (Reason: pain) 5 Days Qty: 20 RF: 0 fluconazole [Diflucan] 200 mg tablet 200 mg PO DAILY Qty: 14 RF: 0 Primary Care Provider: Faby Guaman Referrals: Faby Guaman DO [Primary Care Provider] - Hernandez Vee MD [STAFF PHYSICIAN] - As soon as possible Disposition Disposition: Home, Self Care Discharge Date/Time: 05/23/21 11:45
== END 2021-05-23 11:45 | disposition home or self-care (01) ==
LOC: ED 11:02
PROVIDERS: Emergency Provider Student in an Organized Health Care Education/Training Program; PCP Family Medicine
DX: B37.0 Candidal stomatitis (principal); Z79.1 Long term (current) use of non-steroidal anti-inflammatories (NSAID); Z79.52 Long term (current) use of systemic steroids; Z87.891 Personal history of nicotine dependence
CPT/HCPCS: 36415; 87798; 99282

== ENCOUNTER → 2021-06-05 10:08 | Outpatient (CLI) | payer MEDICARE, SELFPAY ==
[2021-06-05 11:04] LABS: ALB/GLOB Ratio 0.9 RATIO (0.9-2.4); AST(SGOT) 25 U/L (15-37); Alanine Aminotransfer ALT/SGPT 25 U/L (13-56); Albumin, Serum 2.9 g/dL (3.2-5.0); Alkaline Phosphatase 86 U/L (45-117); Anion Gap 4 (5-15); BUN 17 mg/dL (7-18); BUN/Creat Ratio 15.3 RATIO (10-20); Calcium,Total 9.1 mg/dL (8.5-10.1); Chloride 105 mmol/L (98-107); Creatinine, Serum 1.11 mg/dL (0.55-1.02); EST Glomerular Filtration Rate 54 mL/min (>60); Est Glom Filt Rate - Afr Amer 65 mL/min (>60); Globulin 3.4 g/dL (2.2-4.2); Glucose 91 mg/dL (74-106); Potassium 4.4 mmol/L (3.5-5.1); Protein, Total 6.3 g/dL (6.4-8.2); Sodium Level 139 mmol/L (136-145)
[2021-06-06 13:46] LABS: ANTINUCLEAR ANTIBODIES DIRECT Negative (Negative); Anti-dsDNA Ab <1 IU/mL (0-9)
== END ==
PROVIDERS: PCP Family Medicine; Referring Provider Family Medicine; Visit Provider Family Medicine
DX: M32.19 Other organ or system involvement in systemic lupus erythematosus (principal)
CPT/HCPCS: 36415; 80053; 86038; 86225

== ENCOUNTER 2021-06-15 08:09 | Outpatient (CLI) | payer MEDICARE, SELFPAY ==
[2021-06-18 16:09] LABS: QNTFERON TB Mitogen Value > 10.00 IU/mL (.); QNTFERON TB Nil Value 0.07 IU/mL (.); QNTFERON TB1+ Ag Value 0.11 IU/mL (.); QNTFERON TB2+ Ag Value 0.09 IU/mL (.)
[2021-06-18 20:19] LABS: QNTIFERON TB Positive Criteria Negative (Negative)
== END 2021-06-15 23:59 | disposition short-term general hospital (02) ==
LOC: LAB 08:10
PROVIDERS: PCP Family Medicine; Referring Provider Internal Medicine Rheumatology; Visit Provider Internal Medicine Rheumatology
DX: M06.4 Inflammatory polyarthropathy (principal); Z79.899 Other long term (current) drug therapy; R76.8 Other specified abnormal immunological findings in serum; M19.041 Primary osteoarthritis, right hand; M18.11 Unilateral primary osteoarthritis of first carpometacarpal joint, right hand; M17.0 Bilateral primary osteoarthritis of knee; M47.892 Other spondylosis, cervical region; M47.897 Other spondylosis, lumbosacral region; I10 Essential (primary) hypertension
CPT/HCPCS: 36415; 86480

== ENCOUNTER 2021-08-09 10:29 | Outpatient (CLI) | payer MEDICARE, SELFPAY ==
[2021-08-09 11:27] LABS: Absolute Lymphocyte Count 1.95 X10^3/uL (0.83-4.51); Absolute Neutrophil Count 3.6 X10^3/uL (2.0-7.7); Basophil# 0.02 X10^3/uL; Basophil% 0.3 % (0-1); Eosinophil# 0.19 X10^3/uL; Hematocrit 35.7 % (37-47); Hemoglobin 11.5 g/dL (12.0-15.0); Lymphocyte # 1.95 X10^3/ul (0.83-4.51); Lymphocyte % 30.5 % (19-41); Mean Corp Hgb Conc 32.2 g/dL (32-36); Mean Corpuscular Hgb 30.2 pg (27.0-32.0); Mean Corpuscular Volume 93.7 fL (81-99); Monocyte# 0.65 X10^3/uL; Monocyte% 10.2 % (0-10); NRBC Flagged by Analyzer 0 % (0-5); Neutrophil # 3.56 X10^3/uL (2.7-7.7); Neutrophil % 55.7 % (47-70); Platelet Count 294 K/mm3 (150-450); RBC Distribution Width CV 13.8 % (11.6-14.6); RBC Distribution Width SD 46.6 fl (35.1-43.9); Red Blood Count 3.81 M/mm3 (4.2-5.4); White Blood Count 6.4 K/mm3 (4.4-11.0)
[2021-08-09 12:08] LABS: AST(SGOT) 17 U/L (15-37); Alanine Aminotransfer ALT/SGPT 15 U/L (13-56); Albumin, Serum 3.3 g/dL (3.2-5.0); Alkaline Phosphatase 94 U/L (45-117); Anion Gap 4 (5-15); BUN 16 mg/dL (7-18); BUN/Creat Ratio 15.7 RATIO (10-20); Calcium,Total 8.8 mg/dL (8.5-10.1); Chloride 103 mmol/L (98-107); Creatinine, Serum 1.02 mg/dL (0.55-1.02); EST Glomerular Filtration Rate 59 mL/min (>60); Est Glom Filt Rate - Afr Amer 72 mL/min (>60); Globulin 3.4 g/dL (2.2-4.2); Glucose 99 mg/dL (74-106); Potassium 3.9 mmol/L (3.5-5.1); Protein, Total 6.7 g/dL (6.4-8.2); Sodium Level 137 mmol/L (136-145)
[2021-08-12 18:56] LABS: G6PD Quant Test 255 (127-427)
== END 2021-08-09 23:59 | disposition home or self-care (01) ==
LOC: LAB 10:32
PROVIDERS: PCP Family Medicine; Referring Provider Internal Medicine Rheumatology; Visit Provider Internal Medicine Rheumatology
DX: M06.4 Inflammatory polyarthropathy (principal); Z79.899 Other long term (current) drug therapy; R76.8 Other specified abnormal immunological findings in serum; M19.041 Primary osteoarthritis, right hand; M18.11 Unilateral primary osteoarthritis of first carpometacarpal joint, right hand; M17.0 Bilateral primary osteoarthritis of knee; M47.892 Other spondylosis, cervical region; M47.897 Other spondylosis, lumbosacral region; I10 Essential (primary) hypertension; E03.9 Hypothyroidism, unspecified; E78.5 Hyperlipidemia, unspecified; K58.9 Irritable bowel syndrome, unspecified
CPT/HCPCS: 36415; 80053; 82955; 85025

== ENCOUNTER 2021-08-28 11:58 | Outpatient (CLI) | payer MEDICARE, SELFPAY ==
--- NOTE | 2021-08-28 12:12 | RAD_ITS ---
EXAM: XR RIGHT TIBIA AND FIBULA, 2 VIEWS CLINICAL INDICATION: RIGHT LEG PAIN TECHNIQUE: Frontal and lateral views of the right tibia and fibula. This report was created using [employer] report generation technology. COMPARISON: None. FINDINGS: BONES/JOINTS: There is a calcaneal spur. No acute fracture. No subluxation. Normal alignment. Preservation of the joint space. No sclerotic or destructive changes observed. SOFT TISSUES: Unremarkable. No soft tissue swelling or gas. No radiopaque foreign body. RAD/Tibia & Fibula 2 Views IMPRESSION: There is a calcaneal spur. Electronically Signed: Cuate Grubbs MD at 14:31 EDT ,
[2021-08-28 12:31] LABS: Absolute Neutrophil Count 4.1 X10^3/uL (2.0-7.7); Basophil# 0.02 X10^3/uL; Basophil% 0.3 % (0-1); Eosinophil# 0.17 X10^3/uL; Eosinophils% 2.4 % (0-5); Hematocrit 34.8 % (37-47); Hemoglobin 11.9 g/dL (12.0-15.0); Mean Corp Hgb Conc 34.2 g/dL (32-36); Mean Corpuscular Hgb 30.8 pg (27.0-32.0); Mean Corpuscular Volume 90.2 fL (81-99); Mean Platelet Vol. 11.1 fl (6.2-12.0); Monocyte# 0.58 X10^3/uL; Monocyte% 8.2 % (0-10); NRBC Flagged by Analyzer 0 % (0-5); Neutrophil % 57.7 % (47-70); Platelet Count 280 K/mm3 (150-450); RBC Distribution Width CV 13.7 % (11.6-14.6); RBC Distribution Width SD 44.8 fl (35.1-43.9); RET-HE 33.5 pg (30-35); Red Blood Count 3.86 M/mm3 (4.2-5.4); Reticulocyte Count 1.79 % (0.5-1.5); White Blood Count 7.1 K/mm3 (4.4-11.0)
[2021-08-28 12:56] LABS: Vitamin B12 423 pg/mL (211-911)
[2021-08-28 13:50] LABS: Ferritin 13 ng/mL (8-252); Iron 39 ug/dL (50-170); Iron Binding Capacity,Total 234 ug/dL (250-450); PERCENT IRON SATURATION 16.7 % (15.0-55.0)
== END 2021-08-28 23:59 | disposition home or self-care (01) ==
PROVIDERS: PCP Family Medicine; Visit Provider Family Medicine
DX: M79.604 Pain in right leg (principal); D64.9 Anemia, unspecified
CPT/HCPCS: 36415; 73590; 82607; 82728; 82746; 83540; 83550; 85025; 85045

== ENCOUNTER → 2021-10-03 | Outpatient (CLI) | payer MEDICARE, SELFPAY ==
[2021-10-03 12:23] LABS: Absolute Lymphocyte Count 3.04 X10^3/uL (0.83-4.51); Absolute Neutrophil Count 4.6 X10^3/uL (2.0-7.7); Basophil# 0.02 X10^3/uL; Basophil% 0.2 % (0-1); Eosinophil# 0.17 X10^3/uL; Eosinophils% 1.9 % (0-5); Hematocrit 37.9 % (37-47); Hemoglobin 12.2 g/dL (12.0-15.0); Lymphocyte # 3.04 X10^3/ul (0.83-4.51); Lymphocyte % 34.3 % (19-41); Mean Corp Hgb Conc 32.2 g/dL (32-36); Mean Corpuscular Volume 93.1 fL (81-99); Mean Platelet Vol. 10.7 fl (6.2-12.0); Monocyte% 11.3 % (0-10); NRBC Flagged by Analyzer 0 % (0-5); Neutrophil # 4.61 X10^3/uL (2.7-7.7); Platelet Count 281 K/mm3 (150-450); RBC Distribution Width CV 15.1 % (11.6-14.6); RBC Distribution Width SD 51.8 fl (35.1-43.9); Red Blood Count 4.07 M/mm3 (4.2-5.4); White Blood Count 8.9 K/mm3 (4.4-11.0)
[2021-10-03 12:47] LABS: ALB/GLOB Ratio 1.1 RATIO (0.9-2.4); AST(SGOT) 11 U/L (15-37); Alanine Aminotransfer ALT/SGPT 15 U/L (13-56); Albumin, Serum 3.6 g/dL (3.2-5.0); Alkaline Phosphatase 84 U/L (45-117); Anion Gap 5 (5-15); BUN 14 mg/dL (7-18); Calcium,Total 9.2 mg/dL (8.5-10.1); Chloride 102 mmol/L (98-107); Creatinine, Serum 0.94 mg/dL (0.55-1.02); EST Glomerular Filtration Rate 65 mL/min (>60); Est Glom Filt Rate - Afr Amer 79 mL/min (>60); Globulin 3.3 g/dL (2.2-4.2); Glucose 87 mg/dL (74-106); Protein, Total 6.9 g/dL (6.4-8.2); Sodium Level 138 mmol/L (136-145)
== END | disposition home or self-care (01) ==
LOC: LAB 11:55
PROVIDERS: PCP Family Medicine; Visit Provider Internal Medicine Rheumatology
DX: M06.4 Inflammatory polyarthropathy (principal); R76.8 Other specified abnormal immunological findings in serum; M19.041 Primary osteoarthritis, right hand; M18.11 Unilateral primary osteoarthritis of first carpometacarpal joint, right hand; M17.0 Bilateral primary osteoarthritis of knee; M47.892 Other spondylosis, cervical region; M47.897 Other spondylosis, lumbosacral region; Z79.899 Other long term (current) drug therapy
CPT/HCPCS: 36415; 80053; 85025

== ENCOUNTER → 2021-10-11 | Outpatient (CLI) | payer MEDICARE, SELFPAY ==
--- NOTE | 2021-10-11 17:45 | MRI_ITS ---
EXAM: MR RIGHT LOWER EXTREMITY WITHOUT INTRAVENOUS CONTRAST, TIBIA AND FIBULA CLINICAL INDICATION: RT TIB FIB, TIBIA STRESS FX TECHNIQUE: Multiplanar and multisequence MR images of the right tibia and fibula without intravenous contrast. This report was created using [employer] report generation technology. COMPARISON: 09/13/2021. FINDINGS: BONES/JOINTS: Compared with the previous examination there is persistent but decreasing marrow edema involving the mid tibial diaphysis. Compared with previous exam there is persistent but decreased periosteal edema involving the anterior aspect of the mid tibia. No fracture. No joint effusion. MUSCLES: Unremarkable. No edema or myositis. OTHER SOFT TISSUES: Unremarkable. No solid or cystic mass. MRI/Lower Ext/No Jt/w/o IMPRESSION: Persistent but decreasing marrow and periosteal edema mid tibia right. Electronically Signed: Saturnino Espinoza MD at 20:30 EDT ,
== END | disposition home or self-care (01) ==
PROVIDERS: PCP Family Medicine; Visit Provider Orthopaedic Surgery
DX: S82.201A Unspecified fracture of shaft of right tibia, initial encounter for closed fracture (principal)
CPT/HCPCS: 73718

== ENCOUNTER → 2021-10-23 | Outpatient (CLI) | payer MEDICARE, SELFPAY ==
--- NOTE | 2021-10-23 15:28 | MRI_ITS ---
STUDY: MAGNETIC RESONANCE IMAGING OF THE RIGHT ANKLE WITHOUT CONTRAST OF 1555 HOURS ON 10/23/2021 REASON FOR EXAM: 56-year-old female with a suspected posterior tibial tendon tear. TECHNIQUE: Standardized fat and water weighted pulse sequences were obtained in all 3 orthogonal planes. COMPARISON: None. FINDINGS: There are findings of a partial tear of the right posterior tibial tendon. Minor edematous changes are noted in this tendon at the level of the flexor retinaculum. Flexor digitorum longus tendon, flexure hallucis longus tendon are intact. In addition, the anterior tibial tendon is intact. The Achilles tendon is intact. There is no evidence of fractures or dislocations at the level ankle or in the foot. No findings of hematomas, or significant effusions. Normal subcutis adipose space. Normal flexor digitorum longus tendon. Normal flexor hallucis longus tendon. Normal peroneus longus and brevis tendons. Normal tibialis anterior tendon. Normal extensor hallucis longus tendon. Normal extensor digitorum longus tendons. Normal Achilles tendon and teno-osseous insertion. Normal plantar fascia. Normal plantar calcaneal tubercles. Normal intrinsic muscles of the rearfoot. Normal distal tibiofibular syndesmotic ligamentous complex. Normal lateral ligamentous complex. Normal subtalar ligaments and sinus tarsi. Normal deltoid ligamentous complexes. Normal plantar calcaneonavicular (spring) ligament. Normal tibiotalar articulation. Normal talar dome. Normal subtalar articulations. Normal talonavicular articulation. Normal calcaneocuboid articulation. Normal navicular-cuneiform articulations. MRI/Lower Ext Joint Only (Routine) IMPRESSION: 1. Partial tear of the right posterior tibial tendon at the level of the flexor retinaculum. 2. Flexor digitorum longus tendon, flexor hallux longus tendon, anterior tibial tibial tendon, and Achilles tendon are intact. 3. No evidence of hematomas or fluid collections. 4. No fractures or dislocations. 5. All other tendons, fascia, and muscles of the foot are normal. Electronically Signed: Jerrod Pabon MD at 17:20 EDT ,
== END | disposition home or self-care (01) ==
PROVIDERS: PCP Family Medicine; Referring Provider Orthopaedic Surgery; Visit Provider Orthopaedic Surgery
DX: S86.111A Strain of other muscle(s) and tendon(s) of posterior muscle group at lower leg level, right leg, initial encounter (principal)
CPT/HCPCS: 73721

== ENCOUNTER → 2021-11-11 | Outpatient (CLI) | payer MEDICARE, SELFPAY ==
[2021-11-11 15:31] LABS: Absolute Lymphocyte Count 1.84 X10^3/uL (0.83-4.51); Absolute Neutrophil Count 2.9 X10^3/uL (2.0-7.7); Basophil# 0.01 X10^3/uL; Basophil% 0.2 % (0-1); Eosinophil# 0.09 X10^3/uL; Eosinophils% 1.7 % (0-5); Hematocrit 38.8 % (37-47); Hemoglobin 12.8 g/dL (12.0-15.0); Lymphocyte # 1.84 X10^3/ul (0.83-4.51); Lymphocyte % 33.8 % (19-41); Mean Corpuscular Hgb 30.5 pg (27.0-32.0); Mean Corpuscular Volume 92.6 fL (81-99); Monocyte# 0.65 X10^3/uL; Monocyte% 11.9 % (0-10); NRBC Flagged by Analyzer 0 % (0-5); Neutrophil # 2.85 X10^3/uL (2.7-7.7); Neutrophil % 52.2 % (47-70); Platelet Count 259 K/mm3 (150-450); RBC Distribution Width CV 14.5 % (11.6-14.6); RBC Distribution Width SD 49.3 fl (35.1-43.9); Red Blood Count 4.19 M/mm3 (4.2-5.4); White Blood Count 5.5 K/mm3 (4.4-11.0)
[2021-11-11 16:03] LABS: ALB/GLOB Ratio 1.2 RATIO (0.9-2.4); AST(SGOT) 21 U/L (15-37); Alanine Aminotransfer ALT/SGPT 21 U/L (13-56); Albumin, Serum 3.9 g/dL (3.2-5.0); Alkaline Phosphatase 82 U/L (45-117); Anion Gap 6 (5-15); BUN 15 mg/dL (7-18); Calcium,Total 9.3 mg/dL (8.5-10.1); Chloride 101 mmol/L (98-107); EST Glomerular Filtration Rate 61 mL/min (>60); Est Glom Filt Rate - Afr Amer 73 mL/min (>60); Globulin 3.2 g/dL (2.2-4.2); Glucose 95 mg/dL (74-106); Potassium 3.9 mmol/L (3.5-5.1); Protein, Total 7.1 g/dL (6.4-8.2); Sodium Level 136 mmol/L (136-145)
== END | disposition home or self-care (01) ==
LOC: LAB 14:53
PROVIDERS: PCP Family Medicine; Visit Provider Internal Medicine Rheumatology
DX: M06.09 Rheumatoid arthritis without rheumatoid factor, multiple sites (principal); R76.8 Other specified abnormal immunological findings in serum; M19.041 Primary osteoarthritis, right hand; M19.042 Primary osteoarthritis, left hand; M47.893 Other spondylosis, cervicothoracic region; E03.9 Hypothyroidism, unspecified; E78.5 Hyperlipidemia, unspecified
CPT/HCPCS: 36415; 80053; 85025

== ENCOUNTER → 2022-01-10 | Outpatient (CLI) | payer MEDICARE, SELFPAY ==
[2022-01-10 11:17] LABS: Absolute Lymphocyte Count 1.84 X10^3/uL (0.83-4.51); Absolute Neutrophil Count 2.6 X10^3/uL (2.0-7.7); Basophil# 0.02 X10^3/uL; Basophil% 0.4 % (0-1); Eosinophil# 0.14 X10^3/uL; Eosinophils% 2.7 % (0-5); Hematocrit 37.3 % (37-47); Hemoglobin 12.6 g/dL (12.0-15.0); Lymphocyte # 1.84 X10^3/ul (0.83-4.51); Lymphocyte % 35.1 % (19-41); Mean Corp Hgb Conc 33.8 g/dL (32-36); Mean Corpuscular Hgb 31.3 pg (27.0-32.0); Mean Corpuscular Volume 92.6 fL (81-99); Mean Platelet Vol. 11.3 fl (6.2-12.0); Monocyte# 0.63 X10^3/uL; NRBC Flagged by Analyzer 0 % (0-5); Neutrophil % 49.6 % (47-70); Platelet Count 254 K/mm3 (150-450); RBC Distribution Width CV 12.7 % (11.6-14.6); RBC Distribution Width SD 43.6 fl (35.1-43.9); Red Blood Count 4.03 M/mm3 (4.2-5.4); White Blood Count 5.2 K/mm3 (4.4-11.0)
[2022-01-10 12:02] LABS: ALB/GLOB Ratio 1.1 RATIO (0.9-2.4); AST(SGOT) 23 U/L (15-37); Alanine Aminotransfer ALT/SGPT 27 U/L (13-56); Albumin, Serum 3.4 g/dL (3.2-5.0); Alkaline Phosphatase 78 U/L (45-117); Anion Gap 3 (5-15); BUN 16 mg/dL (7-18); BUN/Creat Ratio 15.4 RATIO (10-20); Calcium,Total 9.1 mg/dL (8.5-10.1); Chloride 102 mmol/L (98-107); Creatinine, Serum 1.04 mg/dL (0.55-1.02); EST Glomerular Filtration Rate 58 mL/min (>60); Est Glom Filt Rate - Afr Amer 70 mL/min (>60); Glucose 98 mg/dL (74-106); Potassium 4.2 mmol/L (3.5-5.1); Protein, Total 6.4 g/dL (6.4-8.2); Sodium Level 137 mmol/L (136-145)
== END | disposition home or self-care (01) ==
LOC: LAB 10:40
PROVIDERS: PCP Family Medicine; Referring Provider Internal Medicine Rheumatology; Visit Provider Internal Medicine Rheumatology
DX: M06.09 Rheumatoid arthritis without rheumatoid factor, multiple sites (principal); Z79.899 Other long term (current) drug therapy; R76.8 Other specified abnormal immunological findings in serum; M19.041 Primary osteoarthritis, right hand; M18.11 Unilateral primary osteoarthritis of first carpometacarpal joint, right hand; M17.0 Bilateral primary osteoarthritis of knee; M47.892 Other spondylosis, cervical region; M47.897 Other spondylosis, lumbosacral region; E03.9 Hypothyroidism, unspecified; E78.5 Hyperlipidemia, unspecified; K58.9 Irritable bowel syndrome, unspecified
CPT/HCPCS: 36415; 80053; 85025

== ENCOUNTER → 2022-01-16 | Outpatient (CLI) | payer MEDICARE, SELFPAY ==
--- NOTE | 2022-01-16 10:56 | RAD_ITS ---
STUDY: X-RAY CHEST REASON FOR EXAM: Female, 56 years old. RHEUMATOID ARTHRITIS TECHNIQUE: PA and lateral views of the chest. COMPARISON: Comparison is made with prior study dated 10/29/2020. FINDINGS: The lungs are clear and expanded. There is no demonstrated pleural abnormality. Normal size heart. Normal mediastinum and ronald. Normal visualized pulmonary arteries. Normal visualized aortic arch and descending thoracic aorta. There are degenerative changes of the visualized thoracic spine. Levoscoliosis. Normal visualized ribs, clavicles, and shoulders. There is no demonstrated abnormality of the visualized soft tissue structures of the upper abdomen. RAD/Chest PA and Lateral IMPRESSION: No acute amount is seen. Stable examination. Electronically Signed: Nehemiah Romero MD at 12:26 EDT ,
== END | disposition home or self-care (01) ==
PROVIDERS: PCP Family Medicine; Referring Provider Internal Medicine Rheumatology; Visit Provider Internal Medicine Rheumatology
DX: M06.09 Rheumatoid arthritis without rheumatoid factor, multiple sites (principal); Z79.899 Other long term (current) drug therapy; R76.8 Other specified abnormal immunological findings in serum; M19.041 Primary osteoarthritis, right hand; M18.11 Unilateral primary osteoarthritis of first carpometacarpal joint, right hand; M17.0 Bilateral primary osteoarthritis of knee; M47.892 Other spondylosis, cervical region; M47.897 Other spondylosis, lumbosacral region; E03.9 Hypothyroidism, unspecified; E78.5 Hyperlipidemia, unspecified; K58.9 Irritable bowel syndrome, unspecified
CPT/HCPCS: 71046

== ENCOUNTER → 2022-05-23 | Outpatient (CLI) | payer MEDICARE, SELFPAY ==
[2022-05-23 11:09] LABS: Absolute Lymphocyte Count 2.64 X10^3/uL (0.83-4.51); Absolute Neutrophil Count 1.9 X10^3/uL (2.0-7.7); Basophil# 0.02 X10^3/uL; Basophil% 0.4 % (0-1); Eosinophil# 0.11 X10^3/uL; Eosinophils% 2.1 % (0-5); Hematocrit 39.4 % (37-47); Hemoglobin 13.5 g/dL (12.0-15.0); Lymphocyte # 2.64 X10^3/ul (0.83-4.51); Lymphocyte % 49.9 % (19-41); Mean Corp Hgb Conc 34.3 g/dL (32-36); Mean Corpuscular Hgb 31.3 pg (27.0-32.0); Mean Corpuscular Volume 91.4 fL (81-99); Mean Platelet Vol. 11.4 fl (6.2-12.0); Monocyte# 0.66 X10^3/uL; Monocyte% 12.5 % (0-10); NRBC Flagged by Analyzer 0 % (0-5); Neutrophil # 1.86 X10^3/uL (2.7-7.7); Neutrophil % 35.1 % (47-70); Platelet Count 265 K/mm3 (150-450); RBC Distribution Width CV 12.9 % (11.6-14.6); Red Blood Count 4.31 M/mm3 (4.2-5.4); White Blood Count 5.3 K/mm3 (4.4-11.0)
[2022-05-23 11:45] LABS: ALB/GLOB Ratio 1.2 RATIO (0.9-2.4); AST(SGOT) 19 U/L (15-37); Alanine Aminotransfer ALT/SGPT 30 U/L (13-56); Albumin, Serum 3.7 g/dL (3.2-5.0); Alkaline Phosphatase 76 U/L (45-117); Anion Gap 5 (5-15); BUN 11 mg/dL (7-18); BUN/Creat Ratio 12.6 RATIO (10-20); Calcium,Total 9.6 mg/dL (8.5-10.1); Chloride 100 mmol/L (98-107); Creatinine, Serum 0.87 mg/dL (0.55-1.02); EST Glomerular Filtration Rate 71 mL/min (>60); Est Glom Filt Rate - Afr Amer 85 mL/min (>60); Globulin 3.2 g/dL (2.2-4.2); Glucose 95 mg/dL (74-106); Potassium 3.5 mmol/L (3.5-5.1); Protein, Total 6.9 g/dL (6.4-8.2); Sodium Level 138 mmol/L (136-145)
== END | disposition home or self-care (01) ==
LOC: LAB 10:31
PROVIDERS: PCP Family Medicine; Referring Provider Internal Medicine Rheumatology; Visit Provider Internal Medicine Rheumatology
DX: Z79.899 Other long term (current) drug therapy (principal); M06.09 Rheumatoid arthritis without rheumatoid factor, multiple sites; R76.8 Other specified abnormal immunological findings in serum; M19.041 Primary osteoarthritis, right hand; E03.9 Hypothyroidism, unspecified; E78.5 Hyperlipidemia, unspecified
CPT/HCPCS: 36415; 80053; 85025

== ENCOUNTER → 2022-08-04 | Outpatient (CLI) | payer MEDICARE, SELFPAY ==
[2022-08-04 10:29] LABS: Erythrocyte Sedimentation Rate 5 mm/hr (0-30)
[2022-08-04 10:32] LABS: Absolute Lymphocyte Count 2.83 X10^3/uL (0.83-4.51); Absolute Neutrophil Count 3.1 X10^3/uL (2.0-7.7); Basophil# 0.02 X10^3/uL; Basophil% 0.3 % (0-1); Eosinophil# 0.17 X10^3/uL; Eosinophils% 2.5 % (0-5); Hematocrit 40.3 % (37-47); Hemoglobin 13.1 g/dL (12.0-15.0); Lymphocyte # 2.83 X10^3/ul (0.83-4.51); Mean Corp Hgb Conc 32.5 g/dL (32-36); Mean Corpuscular Hgb 30.7 pg (27.0-32.0); Mean Corpuscular Volume 94.4 fL (81-99); Mean Platelet Vol. 11.2 fl (6.2-12.0); Monocyte# 0.82 X10^3/uL; Monocyte% 11.9 % (0-10); NRBC Flagged by Analyzer 0 % (0-5); Neutrophil # 3.05 X10^3/uL (2.7-7.7); Platelet Count 296 K/mm3 (150-450); RBC Distribution Width SD 44.7 fl (35.1-43.9); Red Blood Count 4.27 M/mm3 (4.2-5.4); White Blood Count 6.9 K/mm3 (4.4-11.0)
[2022-08-04 11:00] LABS: AST(SGOT) 17 U/L (15-37); Alanine Aminotransfer ALT/SGPT 22 U/L (13-56); Albumin, Serum 3.6 g/dL (3.2-5.0); Alkaline Phosphatase 88 U/L (45-117); Anion Gap 5 (5-15); BUN 15 mg/dL (7-18); BUN/Creat Ratio 17.8 RATIO (10-20); Calcium,Total 9.1 mg/dL (8.5-10.1); Chloride 99 mmol/L (98-107); Creatinine, Serum 0.84 mg/dL (0.55-1.02); EST Glomerular Filtration Rate 73 mL/min (>60); Est Glom Filt Rate - Afr Amer 89 mL/min (>60); Globulin 3.5 g/dL (2.2-4.2); Glucose 99 mg/dL (74-106); Potassium 3.7 mmol/L (3.5-5.1); Protein, Total 7.1 g/dL (6.4-8.2); Sodium Level 136 mmol/L (136-145)
== END | disposition home or self-care (01) ==
LOC: LAB 09:49
PROVIDERS: PCP Family Medicine; Referring Provider Internal Medicine Rheumatology; Visit Provider Internal Medicine Rheumatology
DX: M06.09 Rheumatoid arthritis without rheumatoid factor, multiple sites (principal); Z79.899 Other long term (current) drug therapy
CPT/HCPCS: 36415; 80053; 85025; 85652; 86140

== ENCOUNTER → 2022-09-12 | Outpatient (CLI) | payer MEDICARE, SELFPAY ==
[2022-09-12 12:10] LABS: Absolute Lymphocyte Count 2.74 X10^3/uL (0.83-4.51); Absolute Neutrophil Count 2.6 X10^3/uL (2.0-7.7); Basophil# 0.02 X10^3/uL; Basophil% 0.3 % (0-1); Eosinophil# 0.13 X10^3/uL; Eosinophils% 2.1 % (0-5); Hematocrit 39.4 % (37-47); Hemoglobin 12.9 g/dL (12.0-15.0); Lymphocyte # 2.74 X10^3/ul (0.83-4.51); Lymphocyte % 44.3 % (19-41); Mean Corp Hgb Conc 32.7 g/dL (32-36); Mean Corpuscular Hgb 31.2 pg (27.0-32.0); Mean Corpuscular Volume 95.2 fL (81-99); Monocyte# 0.64 X10^3/uL; Monocyte% 10.3 % (0-10); NRBC Flagged by Analyzer 0 % (0-5); Neutrophil # 2.64 X10^3/uL (2.7-7.7); Neutrophil % 42.7 % (47-70); Platelet Count 316 K/mm3 (150-450); RBC Distribution Width CV 14.2 % (11.6-14.6); RBC Distribution Width SD 49.1 fl (35.1-43.9); Red Blood Count 4.14 M/mm3 (4.2-5.4); White Blood Count 6.2 K/mm3 (4.4-11.0)
[2022-09-12 13:31] LABS: ALB/GLOB Ratio 1.1 RATIO (0.9-2.4); AST(SGOT) 18 U/L (15-37); Alanine Aminotransfer ALT/SGPT 23 U/L (13-56); Albumin, Serum 3.6 g/dL (3.2-5.0); Alkaline Phosphatase 75 U/L (45-117); Anion Gap 8 (5-15); BUN 19 mg/dL (7-18); BUN/Creat Ratio 22.5 RATIO (10-20); Chloride 98 mmol/L (98-107); Creatinine, Serum 0.85 mg/dL (0.55-1.02); EST Glomerular Filtration Rate 73 mL/min (>60); Est Glom Filt Rate - Afr Amer 89 mL/min (>60); Globulin 3.3 g/dL (2.2-4.2); Glucose 87 mg/dL (74-106); Potassium 3.7 mmol/L (3.5-5.1); Protein, Total 6.9 g/dL (6.4-8.2); Sodium Level 136 mmol/L (136-145)
== END | disposition home or self-care (01) ==
LOC: LAB 10:00
PROVIDERS: PCP Family Medicine; Referring Provider Internal Medicine Rheumatology; Visit Provider Internal Medicine Rheumatology
DX: M06.09 Rheumatoid arthritis without rheumatoid factor, multiple sites (principal); Z79.899 Other long term (current) drug therapy
CPT/HCPCS: 36415; 80053; 85025

== ENCOUNTER 2022-10-28 10:00 | Outpatient (RCR) | payer OTHER, MEDICARE, SELFPAY ==
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
--- NOTE | 2022-09-12 12:54 | HP.PTREVAL_ITS ---
Dr. Faby Guaman, DO, It has been my pleasure to treat ADI COLUNGA over the last 9 visits for RIGHT SHOULDER PAIN ,LEFT SHOULDER PAIN. Please see the progress note below for an update on the physical therapy plan of care! Subjective: Patient reports making slow progress . Pain today right OA. Overall less irritant. Objective/Function: POSTURE: mod thoracic kyphosis. PALPTION: tender ,UT/ Levator/scalanes/Occiput. NEURO: c/o paresthesia/tingling right hand ,C5-6-7 06/10. AROM: shoulder 130 flexion/abduction pain ,ER 80 ,IR L1. MMT:(peak force) RTC - infraspinatus 13.6,supraspinatus 10.7 ,subscapularis 13.3 ,deltoid 9.6. CERVICAL ROM: flexion min loss ,lateral flexion/rotation mod loss pain ,extension mod loss. THORACIC ROM: flexion mod loss ,extension MOD loss pain ,rotation mod loss pain Plan Plan: cont with POC. PT INTERVETIONS RTC/SCAPULAR STRENGTHENING, POSTURAL EX'S, CERVICAL/THORACIC ROM/STRENGTHENING, MANUAL THERAPY STM, AND MODALITIES NEEDED Balance/Gait/Functional tests - Balance/Special Test Scores Quick DASH Score: 45.4525 Goals Goal 1:: Patient to be I with HEP Goal Time Frame: 4-6 Weeks Goal Progress: Progressing Goal 2:: Patient to demonstrate 50% improvement with less pain and improved function Goal Time Frame: 4-6 Weeks Goal Progress: Progressing Goal 3:: Patient to improve posture for ADLS 80% of the time. Goal Time Frame: 4-6 Weeks Goal Progress: Progressing Goal 4:: Patient to increase ROM shoulder flexion/abduction by 10 degrees to perform OH activities Goal Time Frame: 4-6 Weeks Goal 5:: Patient improve cervical ROM for function of recovery to turn neck with driving Goal Time Frame: 4-6 Weeks Goal Progress: Progressing Anticipated Interventions Patient/Client Instruction: Educate patient on: Condition, Plan of Care For the Purpose of:: To decrease pain, To increase ROM, To improve muscle performance and motor function, To improve ability to perform ADL's, To increase tolerance to activity/condition/position, To improve ability of physical actions for home/community/work/leisure, To improve health of tissue, To decrease soft tissue restriction, To increase flexibility/ROM, To improve endurance, To prevent re-injury Therapeutic Exercise to Include: Strength training, Endurance training, Balance training, Body mechanics, Postural training, Flexibilty training, Active ROM Comment: RTC For the Purpose of:: To decrease pain, To increase ROM, To improve muscle performance and motor function, To increase tolerance to activity/condition/pos ition, To improve ability of physical actions for home/community/work/leisure, To improve health of tissue, To decrease soft tissue restriction, To increase flexibility/ROM, To reduce risk of recurrence, To prevent re-injury Manual Therapy Techniques to Include: Mobilization, Passive ROM For the Purpose of:: To decrease pain, To increase ROM, To improve nutrient delivery to tissue, To increase oxygenation perfusion, To improve health of tissue, To decrease soft tissue restriction TENS: Yes IF ES: Yes Cryotherapy (ice pack, ice massage): Yes Thermo therapy (hot pack): Yes Ultrasound (thermal/non thermal): Yes For the Purpose of:: To decrease pain, To increase ROM, To improve nutrient delivery to tissue, To increase oxygenation perfusion, To improve health of tissue, To decrease soft tissue restriction Please do not hesitate to contact me at [phone] by phone or if you have questions or concerns regarding this new plan of care! Sincerely, Pollo Rodriguez PT, Cert MDT, OCS
--- NOTE | 2023-01-20 09:26 | HP.PTDCNRP_ITS ---
Patient Information Patient Information: ADI COLUNGA was seen in my office for initial evaluation on 08/14/22. The following Plan of Care was established for this patient: POC Established Initial Frequency: 2x /Week Initial Duration: 4 Weeks Anticipated Interventions Patient/Client Instruction: Educate patient on: Condition and Plan of Care For the Purpose of:: To decrease pain, To increase ROM, To improve muscle performance and motor function, To improve ability to perform ADL's, To increase tolerance to activity/condition/position, To improve ability of physical actions for home/community/work/leisure, To improve health of tissue, To decrease soft tissue restriction, To increase flexibility/ROM, To improve endurance and To prevent re-injury Therapeutic Exercise to Include: Strength training, Endurance training, Balance training, Body mechanics, Postural training, Flexibilty training and Active ROM For the Purpose of:: To decrease pain, To increase ROM, To improve muscle performance and motor function, To increase tolerance to activity/condition/position, To improve ability of physical actions for home /community/work/leisure, To improve health of tissue, To decrease soft tissue restriction, To increase flexibility/ROM, To reduce risk of recurrence and To prevent re-injury Manual Therapy Techniques to Include: Mobilization and Passive ROM For the Purpose of:: To decrease pain, To increase ROM, To improve nutrient delivery to tissue, To increase oxygenation perfusion, To improve health of tissue and To decrease soft tissue restriction TENS: Yes IF ES: Yes Cryotherapy (ice pack, ice massage): Yes Thermo therapy (hot pack): Yes Ultrasound (thermal/non thermal): Yes For the Purpose of:: To decrease pain, To increase ROM, To improve nutrient delivery to tissue, To increase oxygenation perfusion, To improve health of tissue and To decrease soft tissue restriction Last Seen Last Seen: This patient was last seen in our office . Pertinent comments regarding their Physical therapy will appear below: Patient was seen for PT for shoulder pain with ROM /strengthening and modalities thus is d/c At this point I will be discontinuing this patient from physical therapy. I would be happy to see this patient again in the future if found appropriate by the physician. Thank you! Pollo Rodriguez, PT, Cert MDT, OCS Balance/Gait/Functional tests Balance/Special Test Scores Quick DASH Score: 15.9075
== END 2022-10-28 19:00 | disposition home or self-care (01) ==
LOC: PT 10:00
PROVIDERS: PCP Family Medicine; Visit Provider Family Medicine
DX: M05.711 Rheumatoid arthritis with rheumatoid factor of right shoulder without organ or systems involvement (principal); M05.712 Rheumatoid arthritis with rheumatoid factor of left shoulder without organ or systems involvement
CPT/HCPCS: 97035; 97110; 97140; 97162; 97530

== ENCOUNTER → 2022-11-12 | Outpatient (CLI) | payer MEDICARE, SELFPAY ==
[2022-11-12 16:52] LABS: Absolute Lymphocyte Count 2.95 X10^3/uL (0.83-4.51); Basophil# 0.02 X10^3/uL; Basophil% 0.2 % (0-1); Eosinophil# 0.12 X10^3/uL; Eosinophils% 1.4 % (0-5); Hematocrit 38.5 % (37-47); Hemoglobin 12.8 g/dL (12.0-15.0); Lymphocyte # 2.95 X10^3/ul (0.83-4.51); Lymphocyte % 33.3 % (19-41); Mean Corp Hgb Conc 33.2 g/dL (32-36); Mean Corpuscular Hgb 31.9 pg (27.0-32.0); Mean Platelet Vol. 11.8 fl (6.2-12.0); Monocyte# 0.75 X10^3/uL; Monocyte% 8.5 % (0-10); NRBC Flagged by Analyzer 0 % (0-5); Neutrophil # 4.99 X10^3/uL (2.7-7.7); Neutrophil % 56.4 % (47-70); Platelet Count 307 K/mm3 (150-450); RBC Distribution Width CV 14.2 % (11.6-14.6); RBC Distribution Width SD 49.9 fl (35.1-43.9); Red Blood Count 4.01 M/mm3 (4.2-5.4); White Blood Count 8.9 K/mm3 (4.4-11.0)
[2022-11-12 17:38] LABS: ALB/GLOB Ratio 1.1 RATIO (0.9-2.4); AST(SGOT) 23 U/L (15-37); Alanine Aminotransfer ALT/SGPT 30 U/L (13-56); Albumin, Serum 3.7 g/dL (3.2-5.0); Alkaline Phosphatase 73 U/L (45-117); Anion Gap 6 (5-15); BUN 19 mg/dL (7-18); BUN/Creat Ratio 26.4 RATIO (10-20); Calcium,Total 9.4 mg/dL (8.5-10.1); Chloride 103 mmol/L (98-107); Creatinine, Serum 0.72 mg/dL (0.55-1.02); EST Glomerular Filtration Rate 88 mL/min (>60); Est Glom Filt Rate - Afr Amer 107 mL/min (>60); Globulin 3.5 g/dL (2.2-4.2); Glucose 87 mg/dL (74-106); Potassium 3.7 mmol/L (3.5-5.1); Protein, Total 7.2 g/dL (6.4-8.2); Sodium Level 137 mmol/L (136-145)
== END | disposition home or self-care (01) ==
LOC: LAB 16:04
PROVIDERS: PCP Family Medicine; Referring Provider Internal Medicine Rheumatology; Visit Provider Internal Medicine Rheumatology
DX: M06.09 Rheumatoid arthritis without rheumatoid factor, multiple sites (principal); Z79.899 Other long term (current) drug therapy; R76.8 Other specified abnormal immunological findings in serum
CPT/HCPCS: 36415; 80053; 85025

== ENCOUNTER → 2022-12-23 | Outpatient (CLI) | payer MEDICARE, SELFPAY ==
[2022-12-23 11:28] LABS: Absolute Lymphocyte Count 2.52 X10^3/uL (0.83-4.51); Absolute Neutrophil Count 2.1 X10^3/uL (2.0-7.7); Basophil# 0.02 X10^3/uL; Basophil% 0.4 % (0-1); Eosinophil# 0.14 X10^3/uL; Eosinophils% 2.6 % (0-5); Hematocrit 38.3 % (37-47); Hemoglobin 12.6 g/dL (12.0-15.0); Lymphocyte # 2.52 X10^3/ul (0.83-4.51); Lymphocyte % 47.2 % (19-41); Mean Corp Hgb Conc 32.9 g/dL (32-36); Mean Corpuscular Hgb 32.9 pg (27.0-32.0); Mean Platelet Vol. 11.2 fl (6.2-12.0); Monocyte# 0.54 X10^3/uL; Monocyte% 10.1 % (0-10); NRBC Flagged by Analyzer 0 % (0-5); Neutrophil # 2.11 X10^3/uL (2.7-7.7); Neutrophil % 39.5 % (47-70); Platelet Count 248 K/mm3 (150-450); RBC Distribution Width CV 14.1 % (11.6-14.6); RBC Distribution Width SD 51.9 fl (35.1-43.9); Red Blood Count 3.83 M/mm3 (4.2-5.4); White Blood Count 5.3 K/mm3 (4.4-11.0)
[2022-12-23 11:54] LABS: ALB/GLOB Ratio 1.1 RATIO (0.9-2.4); AST(SGOT) 22 U/L (15-37); Alanine Aminotransfer ALT/SGPT 28 U/L (13-56); Albumin, Serum 3.4 g/dL (3.2-5.0); Alkaline Phosphatase 79 U/L (45-117); Anion Gap 1 (5-15); BUN 16 mg/dL (7-18); BUN/Creat Ratio 21.9 RATIO (10-20); Chloride 107 mmol/L (98-107); Creatinine, Serum 0.73 mg/dL (0.55-1.02); EST Glomerular Filtration Rate 86 mL/min (>60); Est Glom Filt Rate - Afr Amer 104 mL/min (>60); Globulin 3.1 g/dL (2.2-4.2); Glucose 69 mg/dL (74-106); Potassium 4.1 mmol/L (3.5-5.1); Protein, Total 6.5 g/dL (6.4-8.2); Sodium Level 140 mmol/L (136-145)
== END | disposition home or self-care (01) ==
LOC: LAB 11:11
PROVIDERS: PCP Family Medicine; Referring Provider Internal Medicine Rheumatology; Visit Provider Internal Medicine Rheumatology
DX: M06.09 Rheumatoid arthritis without rheumatoid factor, multiple sites (principal); R76.8 Other specified abnormal immunological findings in serum
CPT/HCPCS: 36415; 80053; 85025

== ENCOUNTER → 2023-06-23 | Outpatient (CLI) | payer MEDICARE, SELFPAY ==
[2023-06-23 13:32] LABS: Absolute Lymphocyte Count 3.41 X10^3/uL (0.83-4.51); Absolute Neutrophil Count 4.1 X10^3/uL (2.0-7.7); Basophil# 0.02 X10^3/uL; Basophil% 0.2 % (0-1); Eosinophil# 0.13 X10^3/uL; Eosinophils% 1.6 % (0-5); Hematocrit 39.5 % (37-47); Hemoglobin 13.4 g/dL (12.0-15.0); Lymphocyte # 3.41 X10^3/ul (0.83-4.51); Lymphocyte % 41.2 % (19-41); Mean Corp Hgb Conc 33.9 g/dL (32-36); Mean Corpuscular Volume 94.3 fL (81-99); Mean Platelet Vol. 11.6 fl (6.2-12.0); Monocyte% 7.3 % (0-10); NRBC Flagged by Analyzer 0 % (0-5); Neutrophil # 4.09 X10^3/uL (2.7-7.7); Neutrophil % 49.5 % (47-70); Platelet Count 306 K/mm3 (150-450); RBC Distribution Width CV 13.2 % (11.6-14.6); RBC Distribution Width SD 45.5 fl (35.1-43.9); Red Blood Count 4.19 M/mm3 (4.2-5.4); White Blood Count 8.3 K/mm3 (4.4-11.0)
[2023-06-23 14:06] LABS: ALB/GLOB Ratio 1.2 RATIO (0.9-2.4); AST(SGOT) 40 U/L (15-37); Alanine Aminotransfer ALT/SGPT 52 U/L (13-56); Albumin, Serum 3.7 g/dL (3.2-5.0); Alkaline Phosphatase 73 U/L (45-117); Anion Gap 7 (5-15); BUN 25 mg/dL (7-18); BUN/Creat Ratio 32.6 RATIO (10-20); Calcium,Total 9.5 mg/dL (8.5-10.1); Chloride 104 mmol/L (98-107); Creatinine, Serum 0.77 mg/dL (0.55-1.02); EST Glomerular Filtration Rate 82 mL/min (>60); Est Glom Filt Rate - Afr Amer 99 mL/min (>60); Globulin 3.2 g/dL (2.2-4.2); Glucose 118 mg/dL (74-106); Potassium 3.9 mmol/L (3.5-5.1); Protein, Total 6.9 g/dL (6.4-8.2); Sodium Level 138 mmol/L (136-145)
== END | disposition home or self-care (01) ==
LOC: LAB 13:05
PROVIDERS: PCP Family Medicine; Referring Provider Internal Medicine Rheumatology; Visit Provider Internal Medicine Rheumatology
DX: M06.09 Rheumatoid arthritis without rheumatoid factor, multiple sites (principal); Z79.899 Other long term (current) drug therapy; R76.8 Other specified abnormal immunological findings in serum
CPT/HCPCS: 36415; 80053; 85025

== ENCOUNTER → 2023-10-15 | Outpatient (CLI) | payer MEDICARE, SELFPAY ==
[2023-10-15 10:21] LABS: Absolute Lymphocyte Count 2.34 X10^3/uL (0.83-4.51); Absolute Neutrophil Count 2.9 X10^3/uL (2.0-7.7); Basophil# 0.02 X10^3/uL; Basophil% 0.3 % (0-1); Eosinophil# 0.15 X10^3/uL; Eosinophils% 2.4 % (0-5); Hematocrit 39.8 % (37-47); Hemoglobin 12.9 g/dL (12.0-15.0); Lymphocyte # 2.34 X10^3/ul (0.83-4.51); Lymphocyte % 37.7 % (19-41); Mean Corp Hgb Conc 32.4 g/dL (32-36); Mean Corpuscular Hgb 32.1 pg (27.0-32.0); Monocyte# 0.78 X10^3/uL; Monocyte% 12.6 % (0-10); NRBC Flagged by Analyzer 0 % (0-5); Neutrophil # 2.91 X10^3/uL (2.7-7.7); Neutrophil % 46.8 % (47-70); Platelet Count 248 K/mm3 (150-450); RBC Distribution Width CV 14.5 % (11.6-14.6); RBC Distribution Width SD 52.7 fl (35.1-43.9); Red Blood Count 4.02 M/mm3 (4.2-5.4); White Blood Count 6.2 K/mm3 (4.4-11.0)
[2023-10-15 10:42] LABS: ALB/GLOB Ratio 1.3 RATIO (0.9-2.4); AST(SGOT) 23 U/L (15-37); Alanine Aminotransfer ALT/SGPT 29 U/L (13-56); Albumin, Serum 3.7 g/dL (3.2-5.0); Alkaline Phosphatase 65 U/L (45-117); Anion Gap 3 (5-15); BUN 14 mg/dL (7-18); BUN/Creat Ratio 20.2 RATIO (10-20); Calcium,Total 9.3 mg/dL (8.5-10.1); Chloride 106 mmol/L (98-107); Creatinine, Serum 0.69 mg/dL (0.55-1.02); EST Glomerular Filtration Rate 92 mL/min (>60); Est Glom Filt Rate - Afr Amer 111 mL/min (>60); Globulin 2.9 g/dL (2.2-4.2); Glucose 96 mg/dL (74-106); Potassium 4.3 mmol/L (3.5-5.1); Protein, Total 6.6 g/dL (6.4-8.2); Sodium Level 140 mmol/L (136-145)
== END | disposition home or self-care (01) ==
LOC: LAB 09:03
PROVIDERS: PCP Family Medicine; Referring Provider Internal Medicine Rheumatology; Visit Provider Internal Medicine Rheumatology
DX: M06.09 Rheumatoid arthritis without rheumatoid factor, multiple sites (principal); Z79.899 Other long term (current) drug therapy; R76.8 Other specified abnormal immunological findings in serum; M19.041 Primary osteoarthritis, right hand
CPT/HCPCS: 36415; 80053; 85025

== ENCOUNTER 2023-11-23 08:15 | Observation (INO) | payer MEDICARE, SELFPAY ==
[2023-11-23] VITALS (22 sets, daily range): BP systolic 105–142; BP diastolic 58–94; PULSE 58–96; RESP 16–18; TEMP 36.2–36.7; O2SAT 95–100; BMI 26.9
--- NOTE | 2023-11-23 08:46 | CT_ITS ---
STUDY: CT ABDOMEN AND PELVIS WITH CONTRAST REASON FOR EXAM: Female, 58 years old. Umbilical hernia. Abdominal pain with nausea. Erythema around the umbilical region. RADIATION DOSAGE (If Supplied By Facility): CTDIvol = ( 14.14 ) mGy, DLP = ( 785.84 ) mGycm TECHNIQUE: Transaxial images were obtained from the dome of the diaphragm to the symphysis pubis without oral contrast. IV 100mL Isovue-300 was administered. Sagittal and coronal images were reconstructed. Individualized dose optimization techniques were used for this CT. COMPARISON: None. FINDINGS: Minimal basilar atelectasis. Coronary artery calcification. Small cysts are seen in the liver. Questionable 7 mm hemangioma in the peripheral inferior lateral aspect of the right lobe of the liver. Normal gallbladder and extrahepatic biliary system. Normal spleen. There is diffuse atrophy of the pancreas. Normal bilateral adrenal glands. Normal right kidney. Normal left kidney. Status post partial gastrectomy for weight loss surgery. Normal small intestine. Moderate amount of fecal material is seen in the right hemicolon. There are surgical clips in the region of the appendix consistent with a prior appendectomy. There is diffuse atherosclerotic calcification of the abdominal aorta, without a demonstrated aneurysm. Normal inferior vena cava. Normal retroperitoneum. Normal urinary bladder. There is absence of the uterus consistent with a prior hysterectomy. There is no evidence of umbilical hernia. There is prominence soft tissue density in the subcutaneous tissues deep to the umbilicus. This measures 3.4 cm x 1.8 cm. This might represent a focal area of inflammatory change. There is evidence of disc space narrowing and subchondral sclerosis at the L4-L5 level. Minimal anterior listhesis of L4 on L5. CT/Abdomen/Pelvis W IV Cont ONLY IMPRESSION: Soft tissue changes deep to the umbilicus although no evidence of umbilical hernia. An inflammatory process should be ruled out. Diffuse atrophy of the pancreas. Scattered hepatic cysts. Status post hysterectomy and appendectomy. Electronically Signed: Nehemiah Romero MD at 10:15 EDT ,
--- NOTE | 2023-11-23 08:58 | EX.ED.DYSGE1 ---
HPI History of Present Illness Chief Complaint: Abd Pain Informant: patient Onset/Context/Timing Onset: Days (5 days) Narrative Narrative: Patient presents secondary to abdominal pain. She reports having a painful nodule just superior to her umbilicus that she noted 5 days ago. The area is still painful and now her abdomen is turning red. She has had some nausea but no vomiting or diarrhea. No noted fever, but she did have some chills. She recently underwent an MRI at [facility] for some lesions in her liver. [facility] Medical History (Updated 11/23/23 @ 11:[address] Yael Elder MD) Rectal prolapse Post hysterectomy menopause Hypertension Encounter for gastric sleeve procedure Encounter for screening for COVID-19 Home Medications ?Medication ?Instructions ?Recorded ?Last Taken ?Type cyclobenzaprine 10 mg tablet 10 mg PO TID 10/29/20 Unknown History folic acid 1 mg tablet 2 mg PO DAILY 10/29/20 Unknown History hydroxychloroquine 200 mg tablet 200 mg PO DAILY 10/29/20 Unknown History (Plaquenil) prednisone 10 mg tablet 10 mg PO DAILY 10/29/20 Unknown History acetaminophen 300 mg-codeine 30 mg 1 tab PO UD PRN PAIN 11/23/23 Unknown History tablet calcium carbonate (Calcium 500) 1,000 mg PO DAILY SUPPLEMENT 11/23/23 11/22/23 History etanercept 50 mg/mL (1 mL) 50 mg subcut TU RHEUMATOID 11/23/23 11/17/23 History subcutaneous syringe (Enbrel) ARTHRITIS levothyroxine 137 mcg tablet 137 mcg PO DAILY THYROID 11/23/23 11/22/23 History methotrexate sodium 25 mg/mL 12.5 mg subcut FR RHEUMATOID 11/23/23 11/20/23 History injection solution ARTHRITIS multivitamin (Daily Multi-Vitamin 1 tab PO DAILY HEALTH MAINTENANCE 11/23/23 11/22/23 History tablet) omeprazole 40 mg capsule,delayed 40 mg PO DAILY ACID REFLUX 11/23/23 11/22/23 History release valsartan 160 mg tablet 160 mg PO DAILY BLOOD PRESURE 11/23/23 11/22/23 History Allergy/AdvReac Type Severity Reaction Status Date / Time gentamicin Allergy SKIN PEALED Verified 11/23/23 08:47 Surgical History (Updated 11/23/23 @ 09:01 by Cristel Bell) History of total left knee replacement Social History Smoking Status: Former smoker alcohol intake: never substance use type: does not use ROS ROS ED Constitutional Constitutional ED: Reports chills; Denies fever(s) Eyes Eyes: Denies change in vision ENT ENT ED: Denies rhinorrhea or sore throat Cardiovascular Cardiovascular: Denies chest pain or palpitations Respiratory/Chest Respiratory/Chest: Denies cough or dyspnea Gastrointestinal Gastrointestinal: Reports abdominal pain and nausea; Denies diarrhea or vomiting Genitourinary Genitourinary ED: Denies dysuria Musculoskeletal Musculoskeletal: Denies back pain or extremity pain Integumentary Denies Abrasions or rash Neurologic Neurologic: Denies headache(s) or weakness Psychiatric Psychiatric: Denies anxiety or depression Allergic/Immunologic Allergic/Immunologic ED: Denies lip swelling or urticaria EXAM Physical Exam Const Vital Signs: 11/23/23 08:17 11/23/23 08:19 11/23/23 09:19 Temperature 97.6 F L 97.6 F L 97.2 F L Temperature Source Temporal Temporal Temporal Pulse Rate 89 89 73 Respiratory Rate 16 16 16 Blood Pressure 134/90 H 134/90 H 129/80 H Blood Pressure Mean 104 104 96 Pulse Ox 100 100 99 Oxygen Delivery Method Room Air Room Air Room Air 11/23/23 10:00 11/23/23 10:16 Temperature 97.6 F L 97.6 F L Temperature Source Temporal Temporal Pulse Rate 64 64 Respiratory Rate 16 16 Blood Pressure 123/83 H 123/83 H Blood Pressure Mean 96 96 Pulse Ox 99 99 Oxygen Delivery Method Room Air Room Air Positive well nourished and well developed General Appearance ED: well developed HEENT Reports moist mucous membranes Eyes EOMs intact bilaterally Chest Wall inspection of chest normal and palpation of chest normal Resp normal respiratory effort and clear to auscultation bilaterally Cardio regular rate and regular rhythm GI GI Narrative: Abdomen soft with a painful palpable umbilical hernia. Erythema noted over the abdominal wall. No guarding or rebound at this time. Extremity normal to inspection Neuro oriented x3 and no sensory deficits noted Motor Exam: strength 5/5 throughout Psych mental status grossly normal Skin Skin Narrative: Patient has an approximately 8 x 12 cm area of erythema around the umbilicus. MDM MDM MDM Narrative Medical decision making narrative: IV line established. Patient given analgesics. Ice pack applied to the abdominal wall. Given that the hernia has been out for the last 5 days we will obtain a CT scan prior to any attempts to reduce. Labwork obtained to evaluate for leukocytosis, anemia, and electrolyte derangement. History & Record Review Discussion w/independent historian: Family and Significant other Lab Data Attestation: I reviewed the patient's lab results. Labs: Laboratory Results - last 24 hr 11/23/23 11/23/23 08:32 08:55 WBC 7.0 RBC 4.01 L Hgb 12.7 Hct 39.6 MCV 98.8 MCH 31.7 MCHC 32.1 RDW Std Deviation 51.9 H RDW Coeff of [place] 14.3 Plt Count 281 MPV 10.7 Immature Gran % (Auto) 0.300 Neut % (Auto) 47.0 Lymph % (Auto) 38.9 [place] % (Auto) 10.8 H Eos % (Auto) 2.6 Baso % (Auto) 0.4 Absolute Neuts (auto) 3.3 Absolute Lymphs (auto) 2.71 Nucleated RBC % 0 Sodium 138 Potassium 3.8 Chloride 105 Carbon Dioxide 29.0 Anion Gap 4 L BUN 16 Creatinine 0.60 Estim Creat Clear Calc 82.38 Est GFR (MDRD) Af Amer 132 Est GFR (MDRD) Non-Af 109 BUN/Creatinine Ratio 26.8 H Glucose 85 Lactic Acid 0.7 Calcium 9.0 Total Bilirubin 0.60 Direct Bilirubin 0.14 AST 24 ALT 38 Alkaline Phosphatase 81 Total Protein 6.6 Albumin 3.5 Globulin 3.1 Radiography Diagnostic Testing: Clinical Impression(s) from Imaging Studies Abdomen/Pelvis CT 11/23/23 08:46 IMPRESSION: Soft tissue changes deep to the umbilicus although no evidence of umbilical hernia. An inflammatory process should be ruled out. Diffuse atrophy of the pancreas. Scattered hepatic cysts. Status post hysterectomy and appendectomy. Electronically Signed: Nehemiah Romero MD at 10:15 EDT , Treatment and Re-Evaluation :: CBC reveals white count of 7.0 with normal differential. Hemoglobin is 12.7. Chemistry studies are unremarkable. Lactic acid is normal at 0.7. LFTs normal. CT scan of the abdomen and pelvis reveals soft tissue changes deep to the umbilicus although no evidence of umbilical hernia. On repeat evaluation patient continues to have painful firm nodule along the superior aspect of the umbilicus. Erythema continues around the umbilicus, although is slightly improved. I spoke with Dr. Luther who reviewed her images. He came and saw the patient in the emergency room. He will plan to take her to the OR to reduce what is felt to be a fat-containing hernia. Discharge Plan Triage Chief Complaint: Abd Pain ED Provider: Yael Elder Dx/Rx/DC Orders Clinical Impression: Hernia, umbilical Prescriptions: No Action cyclobenzaprine 10 mg Tablet 10 mg PO TID PRN (Reason: MUSCLE SPASMS ) prednisone 10 mg Tablet 10 mg PO DAILY PRN (Reason: FLARE UPS) folic acid 1 mg Tablet 2 mg PO DAILY hydroxychloroquine [Plaquenil] 200 mg Tablet 200 mg PO BID levothyroxine 137 mcg tablet 137 mcg PO DAILY valsartan 160 mg tablet 160 mg PO DAILY methotrexate sodium 25 mg/mL solution 12.5 mg subcut FR omeprazole 40 mg capsule,delayed release(DR/EC) 40 mg PO DAILY acetaminophen-codeine 300-30 mg tablet 1 tab PO UD PRN (Reason: PAIN ) Rx Instructions: TAKE ONE TABLET BY MOUTH THREE TO FOUR TIMES A DAY NEEDED FOR PAIN. calcium carbonate [Calcium 500] 500 mg calcium (1,250 mg) tablet,chewable 1,000 mg PO DAILY multivitamin [Daily Multi-Vitamin] Tablet 1 tab PO DAILY Enbrel 50 mg/mL (1 mL) syringe 50 mg subcut TU Primary Care Provider: Faby Guaman Referrals: Faby Guaman DO [Primary Care Provider] - Print Language: Kuwaiti Disposition [facility]
[2023-11-23 09:01] LABS: Absolute Lymphocyte Count 2.71 X10^3/uL (0.83-4.51); Absolute Neutrophil Count 3.3 X10^3/uL (2.0-7.7); Basophil# 0.03 X10^3/uL; Basophil% 0.4 % (0-1); Eosinophil# 0.18 X10^3/uL; Eosinophils% 2.6 % (0-5); Hematocrit 39.6 % (37-47); Hemoglobin 12.7 g/dL (12.0-15.0); Lymphocyte # 2.71 X10^3/ul (0.83-4.51); Lymphocyte % 38.9 % (19-41); Mean Corp Hgb Conc 32.1 g/dL (32-36); Mean Corpuscular Hgb 31.7 pg (27.0-32.0); Mean Corpuscular Volume 98.8 fL (81-99); Mean Platelet Vol. 10.7 fl (6.2-12.0); Monocyte# 0.75 X10^3/uL; Monocyte% 10.8 % (0-10); NRBC Flagged by Analyzer 0 % (0-5); Neutrophil # 3.27 X10^3/uL (2.7-7.7); Platelet Count 281 K/mm3 (150-450); RBC Distribution Width CV 14.3 % (11.6-14.6); RBC Distribution Width SD 51.9 fl (35.1-43.9); Red Blood Count 4.01 M/mm3 (4.2-5.4)
[2023-11-23 09:20] LABS: AST(SGOT) 24 U/L (15-37); Alanine Aminotransfer ALT/SGPT 38 U/L (13-56); Albumin, Serum 3.5 g/dL (3.2-5.0); Alkaline Phosphatase 81 U/L (45-117); Anion Gap 4 (5-15); BUN 16 mg/dL (7-18); BUN/Creat Ratio 26.8 RATIO (10-20); Bilirubin, Direct 0.14 mg/dL (0.00-0.30); Chloride 105 mmol/L (98-107); EST Glomerular Filtration Rate 109 mL/min (>60); Est Glom Filt Rate - Afr Amer 132 mL/min (>60); Estimated Creatinine Clearance 82.38 ml/min; Globulin 3.1 g/dL (2.2-4.2); Glucose 85 mg/dL (74-106); Potassium 3.8 mmol/L (3.5-5.1); Protein, Total 6.6 g/dL (6.4-8.2); Sodium Level 138 mmol/L (136-145)
[2023-11-23] MEDS: 0.9% Normal Saline (1000mL) 1,000 ML 150 ML IV ×2 (09:20→11:39)
[2023-11-23] MEDS: Ondansetron 4 MG/2 ML Vial IV (09:21)
[2023-11-23] MEDS: Morphine 4 MG/ML Syringe IV (09:21)
[2023-11-23 09:32] LABS: Lactic Acid 0.7 mmol/L (0.4-1.9)
--- NOTE | 2023-11-23 11:47 | PCM.HP.STD ---
HPI - General HPI Narrative ADI COLUNGA, is a 58 F who presents with abdominal pain since . Patient reports the pain started and became worse and she started experiencing redness around the area yesterday. She denies nausea or vomiting. [facility] Medical History (Updated 11/23/23 @ 11:[address] Jalen Luther MD) Rectal prolapse Post hysterectomy menopause Hypertension Encounter for gastric sleeve procedure Encounter for screening for COVID-19 Home Medications ?Medication ?Instructions ?Recorded ?Last Taken ?Type cyclobenzaprine 10 mg tablet 10 mg PO TID PRN MUSCLE SPASMS 10/29/20 Unknown History folic acid 1 mg tablet 2 mg PO DAILY SUPPLEMENT 10/29/20 11/22/23 History hydroxychloroquine 200 mg tablet 200 mg PO BID RHEUMATOID ARTHRITIS 10/29/20 11/22/23 History (Plaquenil) prednisone 10 mg tablet 10 mg PO DAILY PRN FLARE UPS 10/29/20 Unknown History acetaminophen 300 mg-codeine 30 mg 1 tab PO UD PRN PAIN 11/23/23 Unknown History tablet calcium carbonate (Calcium 500) 1,000 mg PO DAILY SUPPLEMENT 11/23/23 11/22/23 History etanercept 50 mg/mL (1 mL) 50 mg subcut TU RHEUMATOID 11/23/23 11/17/23 History subcutaneous syringe (Enbrel) ARTHRITIS levothyroxine 137 mcg tablet 137 mcg PO DAILY THYROID 11/23/23 11/22/23 History methotrexate sodium 25 mg/mL 12.5 mg subcut FR RHEUMATOID 11/23/23 11/20/23 History injection solution ARTHRITIS multivitamin (Daily Multi-Vitamin 1 tab PO DAILY HEALTH MAINTENANCE 11/23/23 11/22/23 History tablet) omeprazole 40 mg capsule,delayed 40 mg PO DAILY ACID REFLUX 11/23/23 11/22/23 History release valsartan 160 mg tablet 160 mg PO DAILY BLOOD PRESURE 11/23/23 11/22/23 History Allergy/AdvReac Type Severity Reaction Status Date / Time gentamicin Allergy SKIN PEALED Verified 11/23/23 08:47 Surgical History (Updated 11/23/23 @ 09:01 by Cristel Bell) History of total left knee replacement Social History Smoking Status: Former smoker alcohol intake: never substance use type: does not use ROS Constitutional Constitutional: Denies anorexia, chills, fatigue or fever(s) Eyes Eyes: Denies blurry vision ENT HEENT: Denies abnormal hearing Cardiovascular Cardiovascular: Denies chest pain Respiratory/Chest Respiratory/Chest: Denies cough or dyspnea Gastrointestinal Gastrointestinal: Reports abdominal pain; Denies diarrhea, melena or nausea Musculoskeletal Musculoskeletal: Denies abnormal gait Integumentary Integumentary: Denies jaundice Neurologic Neurologic: Denies abnormal gait Endocrine Endocrinology: Denies flushing Hematologic/Lymphatic Hematologic/Lymphatic: Denies easy bleeding Vital Signs Vital Signs Vital Signs: 11/23/23 08:17 11/23/23 08:19 11/23/23 09:19 Temperature 97.6 F L 97.6 F L 97.2 F L Temperature Source Temporal Temporal Temporal Pulse Rate 89 89 73 Respiratory Rate 16 16 16 Blood Pressure 134/90 H 134/90 H 129/80 H Blood Pressure Mean 104 104 96 Pulse Ox 100 100 99 Oxygen Delivery Method Room Air Room Air Room Air 11/23/23 10:00 11/23/23 10:16 Temperature 97.6 F L 97.6 F L Temperature Source Temporal Temporal Pulse Rate 64 64 Respiratory Rate 16 16 Blood Pressure 123/83 H 123/83 H Blood Pressure Mean 96 96 Pulse Ox 99 99 Oxygen Delivery Method Room Air Room Air Weight Weight: 138 lb Body Mass Index (BMI) 26.9 Physical Exam Const oriented x3 and no apparent distress Resp normal respiratory effort GI soft to palpation Palpation: tender periumbilical Results Lab / Micro Data 11/23/23 08:32 11/23/23 08:32 Labs: Laboratory Results - last 24 hr 11/23/23 08:32: WBC 7.0, RBC 4.01 L, Hgb 12.7, Hct 39.6, MCV 98.8, MCH 31.7, MCHC 32.1, RDW Std Deviation 51.9 H, RDW Coeff of [place] 14.3, Plt Count 281, MPV 10.7, Immature Gran % (Auto) 0.300, Neut % (Auto) 47.0, Lymph % (Auto) 38.9, [place] % (Auto) 10.8 H, Eos % (Auto) 2.6, Baso % (Auto) 0.4, Absolute Neuts (auto) 3.3, Absolute Lymphs (auto) 2.71, Nucleated RBC % 0, Sodium 138, Potassium 3.8, Chloride 105, Carbon Dioxide 29.0, Anion Gap 4 L, BUN 16, Creatinine 0.60, Estim Creat Clear Calc 82.38, Est GFR (MDRD) Af Amer 132, Est GFR (MDRD) Non-Af 109, BUN/Creatinine Ratio 26.8 H, Glucose 85, Calcium 9.0, Total Bilirubin 0.60, Direct Bilirubin 0.14, AST 24, ALT 38, Alkaline Phosphatase 81, Total Protein 6.6, Albumin 3.5, Globulin 3.1 11/23/23 08:55: Lactic Acid 0.7 Imaging Radiology Impression Abdomen/Pelvis CT 11/23/23 08:46 IMPRESSION: Soft tissue changes deep to the umbilicus although no evidence of umbilical hernia. An inflammatory process should be ruled out. Diffuse atrophy of the pancreas. Scattered hepatic cysts. Status post hysterectomy and appendectomy. Electronically Signed: Nehemiah Romero MD at 10:15 EDT Reading Location ID and State: [facility] / [place] , Service support , Assessment & Plan Assessment/Plan (1) Strangulated umbilical hernia: PLAN: The patient appears to have a strangulated umbilical hernia. It is either preperitoneal fat or an epiploic appendage of the transverse colon. She has erythema around the area and extreme tenderness and I was not even able to try to reduce the hernia. CT scan reveals inflammation around the hernia. I discussed taking her to surgery to repair the hernia and reduce the contents. I explained that if this was epiploic appendagitis and there was any necrosis of the colon she may need bowel resection or laparotomy to fully evaluate the colon. I discussed the risks of the procedure such as bleeding, infection, injury to underlying organs such as the bowel or need for bowel resection or laparotomy. Patient understands all the risks and is willing to proceed with surgery. Patient has started on antibiotics in the emergency room and will be taken soon as possible for surgery early afternoon. Jalen Luther MD Pager: [facility] [address] [place] [address], [address] [place] [address] Office:
[2023-11-23] MEDS: Piperacil/Tazobactam 3.375 GM in 0.9% Normal Saline (50mL MB+) 50 ML IV ×2 (13:15→22:15)
--- NOTE | 2023-11-23 13:35 | PCM.PRE.AN2 ---
ASA Classification* ASA Classification ASA Classification: 2 and E Assessment & Plan Anesthesia* Anesthesia Assessment Anesthesia Assessment: Discussed sedation and/or anesthesia options, risks, benefits, and alternatives with patient/parents/legal guardian/POA. Questions invited. The patient/parents/legal guardian/POA seems to understand and agrees to proceed with anesthesia plan. Reviewed the physical assessment, medical history, allergy history and patient home medications list prior to surgery/procedure/anesthetic and documented any changes. Performed airway and anesthesia risk assessments. Anesthesia Type Anesthesia Type: General Pre-Assessment Diagnosis/Proposed Procedure Planned Operative Procedure(s): umbilicalhernia repair Anesthesia History Anesthesia History - certified paralegal: Anesthesia History - certified paralegal Hx Hospitalization Any Problems With Anesthesia Yes: nausea 11/23/23 11:41 Cholinesterase deficiency No 11/23/23 11:41 You/Your Family Experience No 11/23/23 11:41 fever (hyperthermia) with Relationship Recent Exposure to Contagious No 11/23/23 11:41 Disease Does patient have nerve No 11/23/23 11:41 stimulator Patient instructed to have No 11/23/23 11:41 device shut off --Does patient have Pacemaker No 11/23/23 11:41 or ICD? When Was Last Pacemaker Check QUESTION #4 FULL TEXT: You/Your Family Experience fever (hyperthermia) with Anesthesia Last Oral Intake Last Oral intake: Last Oral Intake NPO since 08:00 11/23/23 11:41 Meds taken in AM with sips of No 11/23/23 11:41 water? Meds patient instructed to take am of surgery PONV PONV - certified paralegal: PONV - certified paralegal Female HX of Motion Sickness HX of N/V After Surgery Non-Smoker Duration of Surgery greater than 60 minutes Number of Risk Factors PONV Score Height & Weight Height & Weight: Anesthesia: Height & Weight Height 5 ft 11/23/23 11:41 Weight: 62.596 kg 11/23/23 11:41 Body Mass Index (BMI) 26.9 11/23/23 11:41 Respiratory Assessment Respiratory Assessment - certified paralegal: Respiratory Tract Infection Hx - certified paralegal Hx Respiratory Tract Infection No 11/23/23 11:41 STOP Sleep Apnea STOP Sleep Apnea - certified paralegal: STOP Sleep Apnea - certified paralegal Hx Hypertension Yes 11/23/23 11:41 Hx Sleep Apnea Yes 11/23/23 11:41 CPAP Yes: not complient with use 11/23/23 11:41 BIPAP No 11/23/23 11:41 Do you snore loudly (louder No 11/23/23 11:41 than talking or can be heard Do you often feel tired/ No 11/23/23 11:41 fatigued/ sleepy during daytime? Has anyone observed you stop No 11/23/23 11:41 breathing during sleep? STOP Results Positive 11/23/23 11:41 QUESTION #5 FULL TEXT : Do you snore loudly (louder than talking or can be heard through closed doors)? Tobacco Use History Tobacco Use History - certified paralegal: Tobacco Use History - certified paralegal Tobacco Use Non-smoker 10/29/20 16:14 Smoking Status Former smoker 11/23/23 09:01 Hx Tobacco Use Years Smoking Packs Smoked per Day Smoking Cessation Date was Yes - quit smoking within 15 11/23/23 09:01 within the last 15 years years Hx Smoking Cessation Date 10/29/05 11/23/23 09:01 Hx Smoking Cessation Counseling Hematologic Medial History Hematologic Hx - certified paralegal: Hematologic Medical Hx - statistical modeler Hx of Blood Transfusion Hx of Transfusion in last 3 Months Date of Last Transfusion (if within last 3 months) Ever experience any problems with transfusion(s)? Specify any problems Hx of Preganancy in last 3 Months Nurse Filling Out Transfusion & Questions: Date: Time: Patient unable to answer at this time (ie. confused, unrespo /Reproduction History /Reproductive History - certified paralegal: /Reproductive Hx- certified paralegal Hx Now No 11/23/23 11:41 Gestational Age (in weeks): EDC: Hx Hx Para Hx Section SAB No 11/23/23 11:41 Active Medications Active Medications: Current Medications Generic Name Dose Route Start Last Admin Trade Name Freq PRN Reason Stop Dose Admin Acetaminophen 650 mg 11/23/23 11:44 Acetaminophen 325 Mg Tablet PO Q4H PRN PRN Pain 1-10 or Fever Sodium Chloride 1,000 mls @ 150 mls/hr 11/23/23 08:45 11/23/23 11:39 IV 150 mls/hr .[id number] JUSTUS Administration Sodium Chloride 1,000 mls @ 100 mls/hr 11/23/23 11:45 IV .Q10H JUSTUS Piperacillin Sod/Tazobactam 50 mls @ 12.5 mls/hr 11/23/23 11:45 11/23/23 13:15 Sod 3.375 gm/ Sodium Chloride IV 12.5 mls/hr Q8 JUSTUS Administration Morphine Sulfate 2 - 4 mg 11/23/23 11:44 Morphine 2 Mg/Ml Syringe IV Q2H PRN PRN Pain Score 4-10 Morphine Sulfate 2 - 4 mg 11/23/23 12:21 Morphine 4 Mg/Ml Syringe IV Q2H PRN PRN Pain Score 4-10 Ondansetron HCl 4 mg 11/23/23 11:44 Ondansetron 4 Mg/2 Ml Vial IV Q6H PRN PRN NAUSEA/VOMITING Sodium Chloride 10 - 40 ml 11/23/23 11:44 0.9% Saline Lock 10 Ml Syringe IV UD PRN SALINE FLUSH Sodium Chloride 10 - 40 ml 11/23/23 11:44 0.9% Saline Lock 10 Ml Syringe IV UD PRN SALINE FLUSH Anesthesia Focused Assessment* Temperature: 97.4 F Pulse Rate: 96 Blood Pressure: 142/89 Respiratory Rate: 16 Pulse Ox: 96 Airway Assessment Mouth opens: >3 cm Mallampati Score: II Focused Labs Anesthesia Preop lab: CBC WBC 7.0 K/mm3 (4.4-11.0) 11/23/23 08:32 RBC 4.01 M/mm3 (4.2-5.4) L 11/23/23 08:32 Hgb 12.7 g/dL (12.0-15.0) 11/23/23 08:32 Hct 39.6 % (37-47) 11/23/23 08:32 Plt Count 281 K/mm3 (150-450) 11/23/23 08:32 CHEMISTRY Potassium 3.8 mmol/L (3.5-5.1) 11/23/23 08:32 Sodium 138 mmol/L (136-145) 11/23/23 08:32 BUN 16 mg/dL (7-18) 11/23/23 08:32 Creatinine 0.60 mg/dL (0.55-1.02) 11/23/23 08:32 Glucose 85 mg/dL (74-106) 11/23/23 08:32 TSH 0.02 uIU/mL (0.358-3.74) L 12/08/20 08:49 COAG PT 12.8 SECONDS (11.7-14.9) 10/29/20 16:17 Review of Systems (Anesthesia) ROS Narrative System reviewed and no additional complaints, except as documented. [facility] Medical History Rectal prolapse Post hysterectomy menopause Hypertension Encounter for gastric sleeve procedure Encounter for screening for COVID-19 Home Medications ?Medication ?Instructions ?Recorded ?Last Taken ?Type cyclobenzaprine 10 mg tablet 10 mg PO TID PRN MUSCLE SPASMS 10/29/20 Unknown History folic acid 1 mg tablet 2 mg PO DAILY SUPPLEMENT 10/29/20 11/22/23 History hydroxychloroquine 200 mg tablet 200 mg PO BID RHEUMATOID ARTHRITIS 10/29/20 11/22/23 History (Plaquenil) prednisone 10 mg tablet 10 mg PO DAILY PRN FLARE UPS 10/29/20 Unknown History acetaminophen 300 mg-codeine 30 mg 1 tab PO UD PRN PAIN 11/23/23 Unknown History tablet calcium carbonate (Calcium 500) 1,000 mg PO DAILY SUPPLEMENT 11/23/23 11/22/23 History etanercept 50 mg/mL (1 mL) 50 mg subcut TU RHEUMATOID 11/23/23 11/17/23 History subcutaneous syringe (Enbrel) ARTHRITIS levothyroxine 137 mcg tablet 137 mcg PO DAILY THYROID 11/23/23 11/22/23 History methotrexate sodium 25 mg/mL 12.5 mg subcut FR RHEUMATOID 11/23/23 11/20/23 History injection solution ARTHRITIS multivitamin (Daily Multi-Vitamin 1 tab PO DAILY HEALTH MAINTENANCE 11/23/23 11/22/23 History tablet) omeprazole 40 mg capsule,delayed 40 mg PO DAILY ACID REFLUX 11/23/23 11/22/23 History release valsartan 160 mg tablet 160 mg PO DAILY BLOOD PRESURE 11/23/23 11/22/23 History Allergy/AdvReac Type Severity Reaction Status Date / Time gentamicin Allergy SKIN PEALED Verified 11/23/23 08:47 Surgical History History of total left knee replacement Social History Smoking Status: Former smoker alcohol intake: never substance use type: does not use
--- NOTE | 2023-11-23 14:45 | HERN_PTH ---
PATIENT: ADI COLUNGA LOC: [facility]3 U#:[id number] AGE/SX: 58/F ROOM: AR316 RE11/23/[address]: Dr. Jalen Luther MD : [id number] BED: 1 DIS: 11/24/2023 SPEC #: [id number] RECD: 11/23/23 16:47 STATUS: GERARD ROBERTSON #: [id number] MERCEDEZ: 11/23/23 14:[address]: Jalen Luther DEPT: SURGICAL PATHOLOGY RECD BY: Leann Mcknight ENTERED: 11/24/23 09:55 SP TYPE: Hernia OTHR DR: Dr. Faby Guaman, DO Tissues: A - HERNIA B - HERNIA Procedures: Surgery Specimen Level II HEADER OPERATION: Hernia, umbilical repair PRE-OP DIAGNOSIS: Strangulated umbilical hernia TISSUE SUBMITTED: A- Umbilical hernia sac, B- Umbilical hernia contents MICROSCOPIC DIAGNOSIS A. Umbilical hernia sac, herniorrhaphy: Acute and chronic inflammation and fibrosis. B. Umbilical hernia contents, excision: Fibrofatty tissue with focal fibrosis and chronic and mild acute inflammation. / 11/25/2023 MICROSCOPIC DESCRIPTION Slides are reviewed. GROSS DESCRIPTION A. Received in fixative is one container labeled with the patient's name and designated Umbilical hernia sac. The specimen consists of two irregular fragments of pink-yellow rubbery tissue measuring in aggregate 3.0 x 2.0 x 0.8cm. Serial sections do not reveal mass lesions. The specimen is sectioned and submitted in its entirety in one cassette. B. Received in fixative is one container labeled with the patient's name and designated Umbilical hernia sac contents. The specimen consists of two irregular fragments of pink-yellow rubbery tissue measuring in aggregate 2.5 x 1.5 x 1.0cm. Serial sections do not reveal mass lesions. The specimen is sectioned and submitted in its entirety in one cassette. / 11/24/2023 TC:2 CPT:[id number]
[2023-11-23] MEDS: Bupiv/Epi 0.25% 30 ML Vial (15:10)
--- NOTE | 2023-11-23 15:31 | PCM.OPRPT ---
Report of Operation Date of Procedure: 11/23/23 Pre-Operative Diagnosis: Strangulated umbilical hernia Post-Operative Diagnosis: Strangulated umbilical hernia with abscess Surgery/Procedure Performed:: Umbilical hernia repair Description of Surgical Findings:: Dirty case with incarcerated epiploic appendage Type of Anesthesia: General/Regional Specimen's removed: Epiploic appendage, Hernia sac Estimated Blood Loss (mL): 10 Description of Procedure: Patient was brought back to the operating room and general anesthesia was induced. The abdomen was prepped and draped in usual sterile fashion. Curvilinear incision was marked superior to the umbilicus and injected with local anesthetic. Incision was incised using a scalpel and the umbilical stalk was taken off using electrocautery and sharp dissection. Hernia sac was firm and upon opening it there was purulent fluid. This was suctioned. There also appeared to be a strangulated epiploic appendage. The hernia defect was opened with sharp dissection enough to inspect and the epiploic appendage was resected at the clean base. There is no sign of bleeding or necrosis of the colon. Next the hernia was closed using interrupted 0 Nurolon sutures. The cavity was irrigated and suctioned dry and there was no other purulent material. Hemostasis was obtained using electrocautery. The umbilical stalk had a small defect which was closed with a 3-0 Vicryl suture and then this 3-0 Vicryl suture was used to anchor the umbilical stalk down to the fascia. Next the incision was closed with interrupted 4-0 Monocryl sutures. Steri-Strips and bandages were applied. Patient was awoken and taken to PACU in stable condition. Grafts/Implants Used: No mesh used Admit VTE Documentation VTE Mechan Device Prophylaxis: SCD's
--- NOTE | 2023-11-23 16:09 | PCM.POST.ANE ---
Anesthesia: Postop Eval I Current Vital Signs Temperature: 97.3 F Pulse Rate: 73 Blood Pressure: 132/80 Respiratory Rate: 16 Pulse Ox: 97 Oxygen Delivery Method: Room Air Assessment Airway patent: Yes Spontaneous unlabored respirations: Yes Mental status: Awake and Calm nausea: No Vomiting: No Anesthesia Complication: No Fluid Hydration Crystalloid volume administer (ml): 500 Total IV fluid infused: 500 Progress Note Anesthesia document: Postop Eval 1 completed: Yes
--- NOTE | 2023-11-23 16:18 | POSTOPAN2_ITS ---
Anesthesia Postop Eval I Sum Postop Eval Completion status Anesthesia document: Postop Eval 1 completed: Yes Anesthesia Postop Eval I Summary Anesthesia Postop Eval I Summary: Anesthesia Postop Eval I: Assessment Summary Airway patent Yes 11/23/23 16:09 GLOBAL MARKETING COORDINATOR.[email or web address] Spontaneous unlabored Yes 11/23/23 16:09 GLOBAL MARKETING COORDINATOR.OT respirations Mental status Awake,Calm 11/23/23 16:09 GLOBAL MARKETING COORDINATOR.MDOT nausea No 11/23/23 16:09 GLOBAL MARKETING COORDINATOR.MDOT Vomiting No 11/23/23 16:09 GLOBAL MARKETING COORDINATOR.LOKESH Anesthesia Postop Eval I: Fluid Summary Crystalloid volume administer 500 11/23/23 16:09 GLOBAL MARKETING COORDINATOR.MDOT (ml) Colloids volume administered ( ml) Blood Product volume administered (ml) Total IV fluid infused 500 11/23/23 16:09 GLOBAL MARKETING COORDINATOR.LOKESH Anesthesia Postop Eval I: Summary Notes Anesthesia Complication No 11/23/23 16:09 GLOBAL MARKETING COORDINATOR.LOKESH Anesthesia Complication Comment: Post-operative progress note Anesthesia: Postop Eval II Evaluation Mental status: Awake and Calm nausea: No Vomiting: No Complications Anesthesia Complication: No
--- NOTE | 2023-11-23 16:18 | PCM.POSTANE2 ---
Anesthesia Postop Eval I Sum Postop Eval Completion status Anesthesia document: Postop Eval 1 completed: Yes Anesthesia Postop Eval I Summary Anesthesia Postop Eval I Summary: Anesthesia Postop Eval I: Assessment Summary Airway patent Yes 11/23/23 16:09 STAFF TRAINING AND DEVELOPMENT MANAGER.[email or web address] Spontaneous unlabored Yes 11/23/23 16:09 STAFF TRAINING AND DEVELOPMENT MANAGER.OT respirations Mental status Awake,Calm 11/23/23 16:09 STAFF TRAINING AND DEVELOPMENT MANAGER.MDOT nausea No 11/23/23 16:09 STAFF TRAINING AND DEVELOPMENT MANAGER.MDOT Vomiting No 11/23/23 16:09 STAFF TRAINING AND DEVELOPMENT MANAGER.LOKESH Anesthesia Postop Eval I: Fluid Summary Crystalloid volume administer 500 11/23/23 16:09 STAFF TRAINING AND DEVELOPMENT MANAGER.MDOT (ml) Colloids volume administered ( ml) Blood Product volume administered (ml) Total IV fluid infused 500 11/23/23 16:09 STAFF TRAINING AND DEVELOPMENT MANAGER.LOKESH Anesthesia Postop Eval I: Summary Notes Anesthesia Complication No 11/23/23 16:09 STAFF TRAINING AND DEVELOPMENT MANAGER.LOKESH Anesthesia Complication Comment: Post-operative progress note Anesthesia: Postop Eval II Evaluation Mental status: Awake and Calm nausea: No Vomiting: No Complications Anesthesia Complication: No
[2023-11-23] MEDS: 0.9% Normal Saline (1000mL) 1,000 ML 100 ML IV ×2 (16:53→23:25)
--- NOTE | 2023-11-23 17:29 | POSTOPAN2_ITS ---
Anesthesia Postop Eval I Sum Postop Eval Completion status Anesthesia document: Postop Eval 1 completed: Yes Anesthesia Postop Eval I Summary Anesthesia Postop Eval I Summary: Anesthesia Postop Eval I: Assessment Summary Airway patent Yes 11/23/23 16:09 FIRE HOSE CURER.LOKESH Spontaneous unlabored Yes 11/23/23 16:09 FIRE HOSE CURER.LOKESH respirations Mental status Awake,Calm 11/23/23 16:09 FIRE HOSE CURER.OT nausea No 11/23/23 16:09 FIRE HOSE CURER.OT Vomiting No 11/23/23 16:09 FIRE HOSE CURER.LOKESH Anesthesia Postop Eval I: Fluid Summary Crystalloid volume administer 500 11/23/23 16:09 FIRE HOSE CURER.MDOT (ml) Colloids volume administered ( ml) Blood Product volume administered (ml) Total IV fluid infused 500 11/23/23 16:09 FIRE HOSE CURER.LOKESH Anesthesia Postop Eval I: Summary Notes Anesthesia Complication No 11/23/23 16:09 FIRE HOSE CURER.LOKESH Anesthesia Complication Comment: Post-operative progress note Anesthesia: Postop Eval II Evaluation Mental status: Awake and Calm Pain Level: 2 nausea: No Vomiting: No Complications Anesthesia Complication: No
--- NOTE | 2023-11-23 17:29 | PCM.POSTANE2 ---
Anesthesia Postop Eval I Sum Postop Eval Completion status Anesthesia document: Postop Eval 1 completed: Yes Anesthesia Postop Eval I Summary Anesthesia Postop Eval I Summary: Anesthesia Postop Eval I: Assessment Summary Airway patent Yes 11/23/23 16:09 LIDAR TECHNICIAN.LOKESH Spontaneous unlabored Yes 11/23/23 16:09 LIDAR TECHNICIAN.LOKESH respirations Mental status Awake,Calm 11/23/23 16:09 LIDAR TECHNICIAN.OT nausea No 11/23/23 16:09 LIDAR TECHNICIAN.OT Vomiting No 11/23/23 16:09 LIDAR TECHNICIAN.LOKESH Anesthesia Postop Eval I: Fluid Summary Crystalloid volume administer 500 11/23/23 16:09 LIDAR TECHNICIAN.MDOT (ml) Colloids volume administered ( ml) Blood Product volume administered (ml) Total IV fluid infused 500 11/23/23 16:09 LIDAR TECHNICIAN.LOKESH Anesthesia Postop Eval I: Summary Notes Anesthesia Complication No 11/23/23 16:09 LIDAR TECHNICIAN.LOKESH Anesthesia Complication Comment: Post-operative progress note Anesthesia: Postop Eval II Evaluation Mental status: Awake and Calm Pain Level: 2 nausea: No Vomiting: No Complications Anesthesia Complication: No
[2023-11-23] MEDS: Morphine 2 MG/ML Syringe IV (18:51)
[2023-11-23] MEDS: Acetaminophen 325 MG Tablet 650 MG PO (19:51)
[2023-11-23] MEDS: oxyCODONE 5 MG Tablet PO ×2 (19:52→23:24)
--- NOTE | 2023-11-23 19:53 | NURSING ---
pt walked a half lap in the morse. tolerated well
[2023-11-23] MEDS: Hydroxychloroquine 200 MG Tablet PO (22:16)
[2023-11-24] MEDS: Morphine 2 MG/ML Syringe IV (01:08)
[2023-11-24] MEDS: 0.9% Saline Lock 10 ML Syringe IV (01:09)
[2023-11-24 03:51] VITALS: BP 138/66; PULSE 62; RESP 18; TEMP 36.4; O2SAT 97
[2023-11-24] MEDS: oxyCODONE 5 MG Tablet PO ×3 (03:53→11:42)
[2023-11-24] MEDS: Acetaminophen 325 MG Tablet 650 MG PO ×3 (03:53→11:42)
[2023-11-24] MEDS: Piperacil/Tazobactam 3.375 GM in 0.9% Normal Saline (50mL MB+) 50 ML IV (06:21)
[2023-11-24] MEDS: Levothyroxine 137 MCG Tablet PO (06:21)
[2023-11-24] MEDS: 0.9% Normal Saline (1000mL) 1,000 ML 100 ML IV (07:44)
[2023-11-24] MEDS: Folic Acid 1 MG Tablet 2 MG PO (07:44)
[2023-11-24] MEDS: Losartan Potassium 50 MG Tablet PO (07:44)
[2023-11-24] MEDS: Pantoprazole Sodium 40 MG Tablet PO (07:44)
[2023-11-24] MEDS: Hydroxychloroquine 200 MG Tablet PO (07:45)
--- NOTE | 2023-11-24 08:08 | PN.SURG_ITS ---
Subjective Subjective Patient reports she was tender overnight but the oxycodone and Tylenol combination helped Objective Data Objective Data Vital Signs: Vital Signs Temp Pulse Resp BP Pulse Ox O2 Del Method 97.6 F L 62 18 138/66 H 97 Room Air 11/24/23 03:51 11/24/23 03:51 11/24/23 03:51 11/24/23 03:51 11/24/23 03:51 11/24/23 03:51 Oxygen Delivery Method Room Air Weight: 138 lb 0.15 oz Body Mass Index (BMI) 26.9 Intake & Output: Intake and Output for Last 24 Hours 11/22/23 11/23/23 11/24/23 23:59 23:59 23:59 Intake Total 3170.83 / 3170.83 881.67 / 881.67 Output Total 200 / 200 Balance 3170.83 / 3170.83 681.67 / 681.67 Lab / Micro Data 11/23/23 08:32 11/23/23 08:32 Labs: Laboratory Results - last 24 hr 11/23/23 08:32: WBC 7.0, RBC 4.01 L, Hgb 12.7, Hct 39.6, MCV 98.8, MCH 31.7, MCHC 32.1, RDW Std Deviation 51.9 H, RDW Coeff of [place] 14.3, Plt Count 281, MPV 10.7, Immature Gran % (Auto) 0.300, Neut % (Auto) 47.0, Lymph % (Auto) 38.9, M yogi % (Auto) 10.8 H, Eos % (Auto) 2.6, Baso % (Auto) 0.4, Absolute Neuts (auto) 3.3, Absolute Lymphs (auto) 2.71, Nucleated RBC % 0, Sodium 138, Potassium 3.8, Chloride 105, Carbon Dioxide 29.0, Anion Gap 4 L, BUN 16, Creatinine 0.60, Estim Creat Clear Calc 82.38, Est GFR (MDRD) Af Amer 132, Est GFR (MDRD) Non-Af 109, B UN/Creatinine Ratio 26.8 H, Glucose 85, Calcium 9.0, Total Bilirubin 0.60, Direct Bilirubin 0.14, AST 24, ALT 38, Alkaline Phosphatase 81, Total Protein 6.6, Albumin 3.5, Globulin 3.1 11/23/23 08:55: Lactic Acid 0.7 Radiography Diagnostic Testing: Radiology Impression Abdomen/Pelvis CT 11/23/23 08:46 IMPRESSION: Soft tissue changes deep to the umbilicus although no evidence of umbilical hernia. An inflammatory process should be ruled out. Diffuse atrophy of the pancreas. Scattered hepatic cysts. Status post hysterectomy and appendectomy. Electronically Signed: Nehemiah Romero MD at 10:15 EDT , Physical Exam Const oriented x3 and no apparent distress Resp normal respiratory effort GI soft to palpation Palpation: tender Assessment & Plan Assessment/Plan (1) Strangulated umbilical hernia: PLAN: Patient had some fat strangulated hernia and had this repaired yesterday. The hernia was repaired with sutures. The erythema has resolved. 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 I will discharge her home today on oxycodone for pain control. I will also send her home on oral antibiotics due to the small abscess. Jalen Luther MD Pager: [facility] [address] [place] [address], [address] [place] [address] Office:
[2023-11-24 08:13] VITALS: BP 131/83; PULSE 89; RESP 18; TEMP 36.6; O2SAT 96
--- NOTE | 2023-11-24 10:09 | CASEMGMT ---
Social Work- SW met with pt to discuss advance directives.? Pt confirms she has completed a living will and health care POA naming spouse, Bryn.? Pt notified that documents are not on file at [facility] and SW requested they be brought in for scanning into the EMR.? Pt reports documents are at [employer] and she will let spouse know that [facility] would like a copy. LAURA Fry
--- NOTE | 2023-11-24 11:23 | DCINST_ITS ---
Discharge Instructions Diet Discharge Diet: Light diet - advance as tolerated Activity Discharge Activity: May Not Drive (3 days or while on narcotic medications) Lifting Restrictions: 15 pounds for 4 weeks Dressing / Incision Call your doctor if your incision/area has: Continuous Slow Oozing, Sudden Increased Bleeding, Increased Pain/ Swelling, Increased Redness, Foul Smelling Discharge and Swelling at the incision site Call your doctor if you observe: Fever of 101 or Higher Suture Line Care: Avoid Pulling/Pushing and Avoid Pinching/Bending Remove Dressing in: 2 days Cleanse incision/area with: Soap & Water Follow Up Care Please Follow Up With: Jalen Luther MD When: Please contact our office at [phone] to schedule a 14 day appointment Test Results: Test results from this visit will be discussed in further detail at your follow- up appointment, if applicable. Discharge Plan Admission Admit Date/Time: 11/23/23 11:44 Primary Reason for Your Visit: Strangulated umbilical hernia with abscess Attending Provider: Jalen Luther Primary Care Provider: Faby Guaman Instructions Additional Instructions / Restrictions: Hernia Diet ? Start light with soups and soft bland foods. You may advance diet as tolerated. Activity ? You may drive in 3 days but not while taking narcotic pain medication. ? I encourage walking. You may go up steps, one at a time. ? Do not swim or use hot tubs for 2 weeks. ? For comfort, you may use warm compresses or ice as needed for 15-20 minutes at a time. Lifting ? You may lift up to 15 pounds for 4 weeks. Dressings/Incision ? You may shower OVER your plastic dressings ? Do NOT tub bathe for 1 week ? Leave plastic dressings on for 3 days. ? When plastic dressings are removed, you will find steri strips. It is okay to continue showering with them in place, pat them dry. ? You may remove steri-strips after 1 week. We recommend getting them soaking wet for easier removal. Medications ? Anesthesia used during surgery and pain medications may cause constipation. I recommend initiating on the day of surgery a fiber supplement like, Metamucil, Citrucel, FiberCon, Benefiber, or a generic form of these medications. 1 heaping tablespoon in water daily. You may continue to utilize any bowel regimen or oral laxatives that you routinely take. ? As long as you are not intolerant to Tylenol, acetaminophen, ibuprofen, Motrin, Advil, Aleve, or similar medications, I would recommend transitioning to these [id number] medicines as soon as possible instead of continued use of narcotic pain medication. Follow up ? You should call [facility] soon after surgery, at [phone] option 1 to make a follow up appointment for 14 days after your surgery. Discharge Orders/Prescriptions Prescriptions: New oxycodone 5 mg Tablet 10 mg PO Q4H PRN PRN (Reason: Pain Score 4-10) 4 Days Qty: 20 0RF acetaminophen 325 mg Tablet 650 mg PO Q4H PRN PRN (Reason: Pain 1-10 Or Fever) Qty: 0 0RF amoxicillin-pot clavulanate 875-125 mg tablet 1 tab PO BID 5 Days Qty: 10 0RF Continued cyclobenzaprine 10 mg Tablet 10 mg PO TID PRN (Reason: MUSCLE SPASMS ) prednisone 10 mg Tablet 10 mg PO DAILY PRN (Reason: FLARE UPS) folic acid 1 mg Tablet 2 mg PO DAILY hydroxychloroquine [Plaquenil] 200 mg Tablet 200 mg PO BID levothyroxine 137 mcg tablet 137 mcg PO DAILY valsartan 160 mg tablet 160 mg PO DAILY omeprazole 40 mg capsule,delayed release(DR/EC) 40 mg PO DAILY acetaminophen-codeine 300-30 mg tablet 1 tab PO UD PRN (Reason: PAIN ) Rx Instructions: TAKE ONE TABLET BY MOUTH THREE TO FOUR TIMES A DAY NEEDED FOR PAIN. calcium carbonate [Calcium 500] 500 mg calcium (1,250 mg) tablet,chewable 1,000 mg PO DAILY multivitamin [Daily Multi-Vitamin] Tablet 1 tab PO DAILY Enbrel 50 mg/mL (1 mL) syringe 50 mg subcut TU Held methotrexate sodium 25 mg/mL solution 12.5 mg subcut FR Hold Instructions: Resume on 12/04/23. Referrals / Follow Up: Jalen Luther MD [Med Staff - Active Staff] - (Follow-up in 2 weeks from your surgery) Faby Guaman DO [Primary Care Provider] - Disposition Disposition (needs filled in before D/C Order can be placed): Home, Self Care
[2023-11-24] MEDS: Docusate Sodium 100 MG Capsule PO (11:42)
[2023-11-24 13:26] VITALS: BP 130/80; PULSE 80; RESP 18; TEMP 36.7; O2SAT 96
--- NOTE | 2023-11-24 15:46 | PHA.DC.MC.R ---
Pharmacy [facility] has performed discharge medication reconciliation and counseling for this patient. 1. OXYCODONE 10MG PO Q6H PRN PAIN 2. AMOXICILLIN/CLAVULANATE 875MG PO BID X 5 DAYS 3. HOLD TYLENOL WITH CODEINE IF TAKING OXYCODONE 4. HOLD METHOTREXATE UNTIL 12/03 The patient's discharge medication list was reviewed for discrepancies and discrepancies were resolved. The patient was counseled on the following discharge medications and changes in medications for homegoing were reviewed. The Reason for Use, instructions for use, and potential side effects were reviewed for all new medications. The patient's questions regarding all of their medications were answered. The patient was able to verbally demonstrate an understanding of their discharge medications. Patient counseled by retail pharmacy merchandiserCatie. Medications at Discharge Home Medications cyclobenzaprine 10 mg tablet 10 mg PO TID PRN MUSCLE SPASMS 10/29/20 folic acid 1 mg tablet 2 mg PO DAILY SUPPLEMENT 10/29/20 hydroxychloroquine 200 mg tablet (Plaquenil) 200 mg PO BID RHEUMATOID ARTHRITIS 10/29/20 prednisone 10 mg tablet 10 mg PO DAILY PRN FLARE UPS 10/29/20 acetaminophen 300 mg-codeine 30 mg tablet 1 tab PO UD PRN PAIN 11/23/23 calcium carbonate (Calcium 500) 1,000 mg PO DAILY SUPPLEMENT 11/23/23 etanercept 50 mg/mL (1 mL) subcutaneous syringe (Enbrel) 50 mg subcut TU RHEUMATOID ARTHRITIS 11/23/23 levothyroxine 137 mcg tablet 137 mcg PO DAILY THYROID 11/23/23 methotrexate sodium 25 mg/mL injection solution 12.5 mg subcut FR RHEUMATOID ARTHRITIS 11/23/23 multivitamin (Daily Multi-Vitamin tablet) 1 tab PO DAILY HEALTH MAINTENANCE 11/23/23 omeprazole 40 mg capsule,delayed release 40 mg PO DAILY ACID REFLUX 11/23/23 valsartan 160 mg tablet 160 mg PO DAILY BLOOD PRESURE 11/23/23 acetaminophen 325 mg tablet 650 mg (2 x 325 mg) PO Q4H PRN PRN Pain 1-10 Or Fever #0 tabs 11/24/23 amoxicillin 875 mg-potassium clavulanate 125 mg tablet 1 tab PO BID 5 days #10 tabs 11/24/23 oxycodone 10 mg tablet 10 mg PO Q6H PRN pain 4 days #20 tabs 11/24/23
== END 2023-11-24 14:30 | disposition home or self-care (01) ==
LOC: ED 11:37 → ACINP 11:52 → ED 12:13 → MS3 12:16
PROVIDERS: Admitting Provider Surgery; Emergency Provider Emergency Medicine; PCP Family Medicine; Visit Provider Surgery
PROC: (CPT 49592; principal; 2023-11-23 14:30)
DX: K42.0 Umbilical hernia with obstruction, without gangrene (principal); K65.1 Peritoneal abscess; I10 Essential (primary) hypertension; Z87.891 Personal history of nicotine dependence; Z79.899 Other long term (current) drug therapy
CPT/HCPCS: 49592; 00750; 74177; 80048; 80076; 83605; 85025; 88302; 96361; 96365; 96366; 96375; 96376; 99221; 99284; J7030; Q9967; A4216; G0378; J2405

== ENCOUNTER → 2024-05-28 | Outpatient (CLI) | payer MEDICARE, SELFPAY ==
--- NOTE | 2024-05-28 10:15 | US_ITS ---
STUDY: ABDOMINAL ULTRASOUND - RIGHT UPPER QUADRANT REASON FOR VISIT: Female, 58 years old ELEVATED LIVER ENZYNES TECHNIQUE: Ultrasound evaluation of the right upper quadrant was performed with real-time and static corea-scale imaging. TECHNICAL QUALITY: Adequate. COMPARISON: CT scan 11/23/2023. FINDINGS: Liver: The liver measures 16.8 cm. There is increased echogenicity consistent with fatty infiltration. The bile ducts are within normal limits. There is hepatic color flow. The direction of portal flow is hepatopetal. 3 small cysts are seen measuring no more than 2.3 cm. Gallbladder: Normal distended gallbladder. The gallbladder wall measures 2 mm. There is a negative sonographic Stockton''s sign. There is no pericholecystic fluid. There are no gallstones. Common Bile Duct (C.B.D.): The common bile duct measures 4 mm. Pancreas: Normal size of the head, body and tail of the pancreas. There is normal echogenicity of the pancreas. There is no demonstrated pancreatic mass or cyst. Right Kidney: Normal size of the right kidney. The right kidney measures 9.0 cm. Normal renal cortex. The right cortex measures 1.1 cm. There is no demonstrated renal mass or cyst. There is no right hydronephrosis. US/Liver IMPRESSION: No definite acute or significant abnormality seen. Electronically Signed: Sammy Riley MD at 18:58 EST ,
== END | disposition home or self-care (01) ==
LOC: US 10:07
PROVIDERS: PCP Family Medicine; Referring Provider Internal Medicine Rheumatology; Visit Provider Internal Medicine Rheumatology
DX: M06.09 Rheumatoid arthritis without rheumatoid factor, multiple sites (principal); Z79.899 Other long term (current) drug therapy; R76.8 Other specified abnormal immunological findings in serum; M19.041 Primary osteoarthritis, right hand; M18.11 Unilateral primary osteoarthritis of first carpometacarpal joint, right hand; M17.0 Bilateral primary osteoarthritis of knee
CPT/HCPCS: 76705

== ENCOUNTER → 2025-01-27 | Outpatient (CLI) | payer MEDICARE, SELFPAY ==
--- NOTE | 2025-01-27 19:04 | CT_ITS ---
PROCEDURE: EXTREMITY LOWER WITHOUT CONTRA 01/27/2025 REASON FOR EXAM: [facility] PRE OP KNEE REPLACEMENT TECHNIQUE: [facility] right knee CT. Coronal and Sagittal reconstruction series were provided. One or more dose reduction techniques were used (e.g., Automated exposure control, adjustment of the mA and/or kV according to patient size, use of iterative reconstruction technique). RADIATION DOSE SUMMARY: DLP: 1324.29 mGycm COMPARISON: None provided. FINDINGS: Mild arterial calcification is seen. Right hip: Limited imaging of the right sacroiliac joint demonstrates at least mild degenerative changes. Mild right hip joint degenerative changes are seen, without significant degree of joint space narrowing noted. No evidence of femoral head osteonecrosis. Right knee: Mild degenerative changes are seen of the proximal tibiofibular articulation. A small joint effusion is evident. At least moderate right knee degenerative changes are seen overall, with moderately severe medial joint space narrowing noted. No fracture or dislocation is noted. Right ankle: Mild degenerative changes are seen of the ankle joint. Minimal degenerative changes seen of the midfoot and hindfoot. No fracture or dislocation is seen. CT/Extremity Lower without Contra IMPRESSION: Degenerative changes as described, most prominent in the medial compartment of the right knee. Reading Location: [place] [address]
== END | disposition home or self-care (01) ==
LOC: CT 18:48
PROVIDERS: PCP Family Medicine; Referring Provider Orthopaedic Surgery; Visit Provider Orthopaedic Surgery
DX: M17.11 Unilateral primary osteoarthritis, right knee (principal)
CPT/HCPCS: 73700

== ENCOUNTER → 2025-02-15 | Outpatient (CLI) | payer MEDICARE, SELFPAY ==
--- NOTE | 2025-02-15 07:50 | EKG12_ITS ---
Test Reason : PREOP Blood Pressure : */* mmHG Vent. Rate : 68 BPM Atrial Rate : 68 BPM P-R Int : 156 ms QRS Dur : 80 ms QT Int : 406 ms P-R-T Axes : 47 -5 5 degrees QTcB Int : 431 ms Normal sinus rhythm Normal ECG Confirmed by Saturnino Cerda ([id number]), television news video editor YI GRIMALDO ([id number]) on 02/15/2025 11:31:02 AM Referred By: Jourdan Ahuja Confirmed By: Saturnino Cerda
--- NOTE | 2025-02-15 07:50 | RAD_ITS ---
PROCEDURE: CHEST PA AND LATERAL 02/15/2025 REASON FOR EXAM: PRE OP TECHNIQUE: Procedure Code: RADCXR Modality: DX Procedure: CHEST PA AND LATERAL COMPARISON: Chest x-ray of 01/16/2022 RAD/Chest PA and Lateral IMPRESSION: Degenerative changes of the spine and scoliosis again noted, the former somewha t progressed since the prior study. Bilateral acromioclavicular joint degenerative changes are again seen. Lungs appear clear of acute disease. No pleural effusion or pneumothorax is noted. The cardiomediastinal silhouette is remarkable for a somewhat calcified and tor tuous aorta. No evidence of cardiomegaly. No evidence of acute cardiopulmonary disease. Reading Location: [facility]
[2025-02-15 08:11] LABS: Hematocrit 36.7 % (37-47); Hemoglobin 12.1 g/dL (12.0-15.0); Immature Granulocytes Count 0.010 X10^3/uL (0.0-0.0); Mean Corp Hgb Conc 33.0 g/dL (32-36); Mean Corpuscular Volume 96.6 fL (81-99); Mean Platelet Vol. 10.5 fl (6.2-12.0); NRBC Flagged by Analyzer 0 % (0-5); Platelet Count 262 K/mm3 (150-450); RBC Distribution Width CV 13.3 % (11.6-14.6); RBC Distribution Width SD 47.2 fl (35.1-43.9); Red Blood Count 3.80 M/mm3 (4.2-5.4); White Blood Count 6.1 K/mm3 (4.4-11.0)
[2025-02-15 08:47] LABS: Albumin, Serum 4.0 g/dL (3.4-4.8); Anion Gap 9 (5-15); BUN 12 mg/dL (4-19); BUN/Creat Ratio 17.0 RATIO (10-20); Calcium,Total 8.8 mg/dL (7.6-11.0); Carbon Dioxide 27.2 mmol/L (21.0-32.0); Chloride 104 mmol/L (98-108); Glucose 95 mg/dL (70-99); Potassium 3.9 mmol/L (3.3-5.1)
== END | disposition home or self-care (01) ==
LOC: PSN 07:40
PROVIDERS: PCP Family Medicine; Referring Provider Orthopaedic Surgery; Visit Provider Orthopaedic Surgery
DX: Z01.810 Encounter for preprocedural cardiovascular examination (principal); Z01.818 Encounter for other preprocedural examination; Z01.811 Encounter for preprocedural respiratory examination
CPT/HCPCS: 36415; 71046; 80048; 82040; 85025; 93005